=== PATIENT | female | born 1960 ===

== ENCOUNTER 2017-10-10 05:23 | Inpatient (IN) ==
[2017-10-10] MEDS ORDERED: ONDANSETRON 4 MG/2 ML VIAL IV PRN (07:21)
[2017-10-10] MEDS ORDERED: LACTULOSE 20 GM/30 ML UDCUP PO PRN ×2 (07:21→22:30)
[2017-10-10] MEDS ORDERED: DEXTROSE 50% 25 GM/50 ML VIAL IV PRN (07:26)
[2017-10-10] MEDS ORDERED: GLUCAGON 1 MG VIAL IM PRN (07:26)
[2017-10-10] MEDS ORDERED: MAGNESIUM SULF RIDER 4 GM in PREMIX 1 EACH IV PRN (07:26)
[2017-10-10 08:20] LABS: Basophils % 0.5 % (0.0-0.8); Eosinophils % 0.2 % (0.00-10.9); Hemoglobin 9.3 GM/DL (12.0-16.0); Immature Granulocytes % 0.5 %; Immature Granulocytes Absolute 0.02 #; Lymphocytes # 0.8 10*3/uL (1.4-4.0); Mean Corpuscular HGB Conc 34.4 GM/DL (32-36); Mean Corpuscular Hemoglobin 35 PG (27-34); Mean Corpuscular Volume 100.7 FL (87-102); Mean Platelet Volume 9.2 FL (9.6-12.0); Monocytes # 0.5 10*3/uL (0.11-0.8); Monocytes % 11.6 % (1.7-12.7); Neutrophils # 2.9 10*3/uL (1.4-7.4); Neutrophils % 68.2 % (38.7-73.9); Platelet Count 102 T/CUMM (130-400); Red Blood Count 2.68 MC/CUMM (3.8-5.5); Red Cell Distribution Width 14.6 % (9.3-17.3); White Blood Count 4.2 T/CUMM (4-12)
[2017-10-10] MEDS: INSULIN LISPRO 100 UNIT/ML SUBCUT SCH ×4 (08:37→21:03)
[2017-10-10 08:38] LABS: Albumin 2.5 G/DL (3.4-5.0); Bilirubin,Total 2.6 MG/DL (0.2-1.0); Calcium 8.4 MG/DL (8.5-10.1); Osmolality,Calculated 267.5 MOS/KG (273-304); Potassium 3.9 MMOL/L (3.5-5.1); Thyroid Stimulating Hormone 6.96 uIU/ml (0.358-3.74)
[2017-10-10] MEDS: PANTOPRAZOLE 40 MG TABLET PO SCH (08:45)
[2017-10-10] MEDS: FUROSEMIDE 40 MG/4 ML VIAL IV SCH ×2 (08:45→16:10)
[2017-10-10 12:22] LABS: Apearance,Urine CLEAR (Clear); Bacteria,Urine Occasional /HPF (Few); Bilirubin,Urine Negative (Negative); Blood, Urine Negative (Negative); Glucose,Urine (UA) Negative (Negative); Ketones,Urine Negative (Negative); Mucus,Urine Occasional /LPF (Occasional); Nitrite,Urine Negative (Negative); Protein,Urine Negative; RBC,Urine <1 /HPF (0-4); Squamous Epithelial Cell,Urine Occasional /HPF (0-10); Urine Color Yellow (Yellow); Urine Specific Gravity 1.003 (1.001-1.035); Urine Urobilinogen < 2.0 EU/DL (0.2-1.0); WBC,Urine <1 /HPF (0-6)
[2017-10-10] MEDS ORDERED: ASPIRIN CHEW 81 MG TABLET PO ONE (20:41)
[2017-10-10] MEDS ORDERED: LACTULOSE 160 GM/240 ML BOTTLE PO SCH (21:00)
[2017-10-10] MEDS: FAMOTIDINE 20 MG TABLET PO SCH (21:03)
[2017-10-10] MEDS: CARVEDILOL 3.125 MG TABLET PO SCH (21:03)
[2017-10-11 05:40] LABS: Basophils % 0.3 % (0.0-0.8); Eosinophils # 0.1 10*3/uL (0.0-0.87); Eosinophils % 3.1 % (0.00-10.9); Hematocrit 22.6 VOL% (35.7-47.0); Hemoglobin 7.9 GM/DL (12.0-16.0); Immature Granulocytes % 0.3 %; Immature Granulocytes Absolute 0.01 #; Lymphocytes # 1.2 10*3/uL (1.4-4.0); Lymphocytes % 35.2 % (21.3-54.2); Mean Corpuscular Hemoglobin 35 PG (27-34); Mean Corpuscular Volume 99.6 FL (87-102); Mean Platelet Volume 9.2 FL (9.6-12.0); Monocytes # 0.4 10*3/uL (0.11-0.8); Monocytes % 10.7 % (1.7-12.7); Neutrophils # 1.7 10*3/uL (1.4-7.4); Neutrophils % 50.4 % (38.7-73.9); Platelet Count 88 T/CUMM (130-400); Red Blood Count 2.27 MC/CUMM (3.8-5.5); Red Cell Distribution Width 14.8 % (9.3-17.3); White Blood Count 3.3 T/CUMM (4-12)
[2017-10-11 06:10] LABS: Albumin 1.9 G/DL (3.4-5.0); Bilirubin,Total 1.9 MG/DL (0.2-1.0); Calcium 7.6 MG/DL (8.5-10.1); Osmolality,Calculated 278.5 MOS/KG (273-304); Potassium 3.6 MMOL/L (3.5-5.1); Total Protein 5.9 G/DL (6.4-8.3)
[2017-10-11 06:41] LABS: Hypochromasia 2+; Polychromasia Slight
[2017-10-11] MEDS: INSULIN LISPRO 100 UNIT/ML SUBCUT SCH ×4 (08:23→20:12)
[2017-10-11] MEDS ORDERED: LOSARTAN 50 MG TABLET PO SCH (09:00)
[2017-10-11] MEDS: GEMFIBROZIL 600 MG TABLET PO SCH ×2 (10:06→16:21)
[2017-10-11] MEDS: metFORMIN 850 MG TABLET PO SCH ×2 (10:06→16:21)
[2017-10-11] MEDS: FUROSEMIDE 40 MG/4 ML VIAL IV SCH ×2 (10:07→18:12)
[2017-10-11] MEDS: CARVEDILOL 3.125 MG TABLET PO SCH ×2 (10:07→16:21)
[2017-10-11] MEDS: PANTOPRAZOLE 40 MG TABLET PO SCH (10:07)
[2017-10-11] MEDS: FAMOTIDINE 20 MG TABLET PO SCH ×2 (10:07→20:10)
[2017-10-11] MEDS: ASPIRIN CHEW 81 MG TABLET PO SCH (10:07)
[2017-10-11] MEDS: OMEGA 3 ACID ETHYL ESTERS 1 GM CAPSULE PO SCH (10:07)
[2017-10-11] MEDS: LACTULOSE 20 GM/30 ML UDCUP PO SCH ×2 (10:15→20:11)
[2017-10-11] MEDS ORDERED: SODIUM CHLORIDE 0.9% 1,000 ML IV PRN (10:42)
[2017-10-11 13:26] LABS: Basophils % 0.6 % (0.0-0.8); Eosinophils # 0.1 10*3/uL (0.0-0.87); Eosinophils % 2.9 % (0.00-10.9); Hematocrit 25.9 VOL% (35.7-47.0); Hemoglobin 8.5 GM/DL (12.0-16.0); Immature Granulocytes % 0.3 %; Immature Granulocytes Absolute 0.01 #; Lymphocytes # 0.8 10*3/uL (1.4-4.0); Lymphocytes % 24.3 % (21.3-54.2); Mean Corpuscular HGB Conc 32.8 GM/DL (32-36); Mean Corpuscular Hemoglobin 35 PG (27-34); Mean Corpuscular Volume 106.1 FL (87-102); Mean Platelet Volume 9.4 FL (9.6-12.0); Monocytes # 0.4 10*3/uL (0.11-0.8); Monocytes % 12.5 % (1.7-12.7); Neutrophils # 2.1 10*3/uL (1.4-7.4); Neutrophils % 59.4 % (38.7-73.9); Red Blood Count 2.44 MC/CUMM (3.8-5.5); Red Cell Distribution Width 14.8 % (9.3-17.3); White Blood Count 3.5 T/CUMM (4-12)
[2017-10-11 13:30] LABS: Platelet Count 89 T/CUMM (130-400)
[2017-10-11 13:48] LABS: Hypochromasia 1+; Lymphocytes 17 % (20-55); Platelet Estimate Decreased; Segmented Neutrophils 78 % (50-85); Total Cells Counted 100
[2017-10-11 14:16] LABS: Folate 18.8 NG/ML (5.4-24.0); Vitamin B12 845 PG/ML (211-911)
[2017-10-11 14:32] LABS: Sedimentation Rate-Westergren 114 MM/HR (0-30)
[2017-10-11 19:22] LABS: INR 1.3; Partial Thromboplastin Time 31.3 SECS (0-40)
[2017-10-11 19:29] LABS: % Iron Saturation 14.6 % (18-50)
[2017-10-11 20:29] LABS: HIV Antigen/Antibody Result Nonreactive (Nonreactive); Hepatitis A Ab IgM Result Negative (Negative); Hepatitis B Core IgM Result Negative (Negative); Hepatitis B Surface Ag Quant < 0.10 Index; Hepatitis B Surface Ag Result Negative (Negative); Hepatitis C Virus Ab Quant 0.19 Index; Hepatitis C Virus Ab Result Negative (Negative)
[2017-10-12 02:57] LABS: Hematocrit 28.2 VOL% (35.7-47.0); Hemoglobin 10.1 GM/DL (12.0-16.0)
[2017-10-12 02:58] LABS: Hematocrit 29.1 VOL% (35.7-47.0); Mean Corpuscular HGB Conc 34.4 GM/DL (32-36); Mean Corpuscular Hemoglobin 33 PG (27-34); Mean Corpuscular Volume 97.3 FL (87-102); Mean Platelet Volume 9.4 FL (9.6-12.0); Platelet Count 80 T/CUMM (130-400); Red Blood Count 2.99 MC/CUMM (3.8-5.5); Red Cell Distribution Width 17.2 % (9.3-17.3); White Blood Count 3.5 T/CUMM (4-12)
[2017-10-12 02:59] LABS: Basophils % 0.3 % (0.0-0.8); Eosinophils # 0.1 10*3/uL (0.0-0.87); Eosinophils % 2.6 % (0.00-10.9); Immature Granulocytes % 0.3 %; Immature Granulocytes Absolute 0.01 #; Lymphocytes % 29.4 % (21.3-54.2); Monocytes # 0.4 10*3/uL (0.11-0.8); Monocytes % 10.9 % (1.7-12.7); Neutrophils % 56.5 % (38.7-73.9)
[2017-10-12 03:27] LABS: Calcium 7.9 MG/DL (8.5-10.1); Osmolality,Calculated 285.4 MOS/KG (273-304); Potassium 3.6 MMOL/L (3.5-5.1)
[2017-10-12 03:46] LABS: Band Neutrophils 1 % (0-10); Lymphocytes 30 % (20-55); Macrocytosis 3+; Platelet Estimate Decreased; Segmented Neutrophils 59 % (50-85); Total Cells Counted 100
[2017-10-12 03:47] LABS: Atypical Lymphocytes Few
[2017-10-12] MEDS ORDERED: diphenhydrAMINE 50 MG/1 ML VIAL IV ONE (03:52)
[2017-10-12] MEDS: GEMFIBROZIL 600 MG TABLET PO SCH ×2 (09:47→17:00)
[2017-10-12] MEDS: FAMOTIDINE 20 MG TABLET PO SCH ×2 (09:47→20:56)
[2017-10-12] MEDS: ASPIRIN CHEW 81 MG TABLET PO SCH (09:47)
[2017-10-12] MEDS: metFORMIN 850 MG TABLET PO SCH ×2 (09:47→16:59)
[2017-10-12] MEDS: INSULIN LISPRO 100 UNIT/ML SUBCUT SCH ×4 (09:47→20:57)
[2017-10-12] MEDS: PANTOPRAZOLE 40 MG TABLET PO SCH (09:47)
[2017-10-12] MEDS: OMEGA 3 ACID ETHYL ESTERS 1 GM CAPSULE PO SCH (09:47)
[2017-10-12] MEDS: FUROSEMIDE 40 MG/4 ML VIAL IV SCH ×2 (09:47→16:59)
[2017-10-12] MEDS: CARVEDILOL 3.125 MG TABLET PO SCH ×2 (09:48→16:59)
[2017-10-12] MEDS ORDERED: MAGNESIUM SULF RIDER 4 GM in PREMIX 1 EACH IV ONE (10:30)
[2017-10-12] MEDS: LACTULOSE 20 GM/30 ML UDCUP PO SCH ×2 (10:52→20:56)
[2017-10-13 04:43] LABS: Basophils % 0.5 % (0.0-0.8); Eosinophils # 0.1 10*3/uL (0.0-0.87); Eosinophils % 2.7 % (0.00-10.9); Hematocrit 31.5 VOL% (35.7-47.0); Hemoglobin 10.9 GM/DL (12.0-16.0); Immature Granulocytes % 0.3 %; Immature Granulocytes Absolute 0.01 #; Lymphocytes # 1.2 10*3/uL (1.4-4.0); Lymphocytes % 33.4 % (21.3-54.2); Mean Corpuscular HGB Conc 34.6 GM/DL (32-36); Mean Corpuscular Hemoglobin 33 PG (27-34); Mean Platelet Volume 9.4 FL (9.6-12.0); Monocytes # 0.5 10*3/uL (0.11-0.8); Monocytes % 13.2 % (1.7-12.7); Neutrophils # 1.9 10*3/uL (1.4-7.4); Neutrophils % 49.9 % (38.7-73.9); Platelet Count 74 T/CUMM (130-400); Red Blood Count 3.28 MC/CUMM (3.8-5.5); White Blood Count 3.7 T/CUMM (4-12)
[2017-10-13 05:00] LABS: Calcium 8.2 MG/DL (8.5-10.1); Osmolality,Calculated 286.1 MOS/KG (273-304)
[2017-10-13 05:11] LABS: Eosinophils 5 % (0-10); Lymphocytes 26 % (20-55); Segmented Neutrophils 57 % (50-85); Total Cells Counted 100
[2017-10-13 05:12] LABS: Atypical Lymphocytes Few; Giant Platelets Few; Hypochromasia 1+; Ovalocytes Slight; Platelet Estimate Decreased
[2017-10-13] MEDS: MAGNESIUM SULF RIDER 2 GM in PREMIX 1 EACH IV PRN ×2 (06:34→10:30)
[2017-10-13] MEDS: INSULIN LISPRO 100 UNIT/ML SUBCUT SCH ×3 (07:33→16:22)
[2017-10-13] MEDS ORDERED: MAGNESIUM SULF RIDER 4 GM in PREMIX 1 EACH IV ONE (08:07)
[2017-10-13] MEDS ORDERED: DEXT 5% NACL 0.45% KCL 20 MEQ 20 MEQ/1,000 ML BAG IV SCH (08:30)
[2017-10-13 08:39] LABS: Hemoglobin A1 (Alkaline) 97.4 % (96.5-98.5); Hemoglobin A2 (Alkaline) 2.6 % (1.5-3.5)
[2017-10-13] MEDS ORDERED: POTASSIUM CHLORIDE RIDER 20 MEQ in PREMIX 1 EACH IV STA (08:39)
[2017-10-13] MEDS ORDERED: MAGNESIUM SULF RIDER 2 GM in PREMIX 1 EACH IV PRN (08:54)
[2017-10-13] MEDS ORDERED: POTASSIUM CHLORIDE RIDER 10 MEQ in PREMIX 1 EACH IV PRN (08:54)
[2017-10-13] MEDS: POTASSIUM CHLORIDE RIDER 10 MEQ in PREMIX 1 EACH IV PRN ×2 (09:00→10:15)
[2017-10-13] MEDS ORDERED: HEPARIN 5,000 UNIT/1 ML VIAL ONE (09:04)
[2017-10-13] MEDS: metFORMIN 850 MG TABLET PO SCH ×2 (10:36→17:03)
[2017-10-13] MEDS: GEMFIBROZIL 600 MG TABLET PO SCH ×2 (10:37→17:03)
[2017-10-13] MEDS: OMEGA 3 ACID ETHYL ESTERS 1 GM CAPSULE PO SCH (10:37)
[2017-10-13] MEDS: LACTULOSE 20 GM/30 ML UDCUP PO SCH ×2 (10:37→21:03)
[2017-10-13] MEDS ORDERED: DIAZEPAM 5 MG TABLET PO ONE (11:00)
[2017-10-13] MEDS ORDERED: diphenhydrAMINE CAP 25 MG CAPSULE PO ONE (11:00)
[2017-10-13] MEDS: PANTOPRAZOLE 40 MG TABLET PO SCH (12:32)
[2017-10-13] MEDS: ASPIRIN CHEW 81 MG TABLET PO SCH (12:32)
[2017-10-13] MEDS: FAMOTIDINE 20 MG TABLET PO SCH ×2 (12:33→21:03)
[2017-10-13] MEDS: SODIUM CHLORIDE 0.9% 1,000 ML IV SCH ×2 (12:33→16:22)
[2017-10-13] MEDS: CARVEDILOL 3.125 MG TABLET PO SCH ×2 (12:33→17:04)
[2017-10-13] MEDS ORDERED: MIDAZOLAM 2 MG/2 ML VIAL ONE (13:06)
[2017-10-13] MEDS ORDERED: fentaNYL 100 MCG/2 ML VIAL ONE (13:06)
[2017-10-13] MEDS: chlordiazePOXIDE 10 MG CAPSULE PO SCH (14:18)
[2017-10-13 16:09] LABS: Basophils % 0.6 % (0.0-0.8); Eosinophils # 0.1 10*3/uL (0.0-0.87); Hematocrit 35.9 VOL% (35.7-47.0); Hemoglobin 12.5 GM/DL (12.0-16.0); Immature Granulocytes % 0.4 %; Immature Granulocytes Absolute 0.02 #; Lymphocytes # 1.4 10*3/uL (1.4-4.0); Lymphocytes % 27.8 % (21.3-54.2); Mean Corpuscular HGB Conc 34.8 GM/DL (32-36); Mean Corpuscular Hemoglobin 34 PG (27-34); Mean Platelet Volume 9.2 FL (9.6-12.0); Monocytes # 0.6 10*3/uL (0.11-0.8); Monocytes % 11.2 % (1.7-12.7); Platelet Count 84 T/CUMM (130-400); Red Cell Distribution Width 17.4 % (9.3-17.3); White Blood Count 5.1 T/CUMM (4-12)
[2017-10-13 16:29] LABS: Bilirubin,Total 2.2 MG/DL (0.2-1.0); Calcium 8.2 MG/DL (8.5-10.1); Osmolality,Calculated 283.4 MOS/KG (273-304); Potassium 3.5 MMOL/L (3.5-5.1); Total Protein 6.9 G/DL (6.4-8.3)
[2017-10-13 16:41] LABS: Hypochromasia 1+; Macrocytosis 2+
[2017-10-13 16:42] LABS: Platelet Estimate Decreased
[2017-10-13] MEDS: POTASSIUM CHLORIDE 20 MEQ TABLET PO PRN ×2 (17:03→19:03)
[2017-10-13] MEDS: ROSUVASTATIN 20 MG TABLET PO SCH (21:03)
[2017-10-14] MEDS: INSULIN LISPRO 100 UNIT/ML SUBCUT SCH ×5 (03:34→22:39)
[2017-10-14] MEDS: chlordiazePOXIDE 10 MG CAPSULE PO SCH ×2 (03:34→09:40)
[2017-10-14] MEDS ORDERED: SODIUM CHLORIDE 0.9% 250 ML IV ONE (04:03)
[2017-10-14] MEDS: CHLORHEXIDINE 0.12% ORAL RINSE 60 ML BOTTLE SWISH/SPIT SCH ×3 (04:47→22:19)
[2017-10-14 04:51] LABS: Basophils % 0.7 % (0.0-0.8); Eosinophils # 0.2 10*3/uL (0.0-0.87); Hemoglobin 11.6 GM/DL (12.0-16.0); Immature Granulocytes % 0.4 %; Immature Granulocytes Absolute 0.02 #; Lymphocytes # 1.5 10*3/uL (1.4-4.0); Lymphocytes % 32.2 % (21.3-54.2); Mean Corpuscular HGB Conc 33.1 GM/DL (32-36); Mean Corpuscular Hemoglobin 33 PG (27-34); Mean Corpuscular Volume 98.6 FL (87-102); Mean Platelet Volume 9.5 FL (9.6-12.0); Monocytes # 0.6 10*3/uL (0.11-0.8); Monocytes % 13.1 % (1.7-12.7); Neutrophils # 2.2 10*3/uL (1.4-7.4); Neutrophils % 48.6 % (38.7-73.9); Platelet Count 100 T/CUMM (130-400); Red Blood Count 3.55 MC/CUMM (3.8-5.5); Red Cell Distribution Width 17.6 % (9.3-17.3); White Blood Count 4.6 T/CUMM (4-12)
[2017-10-14 05:24] LABS: Calcium 7.9 MG/DL (8.5-10.1); Osmolality,Calculated 289.1 MOS/KG (273-304)
[2017-10-14] MEDS ORDERED: SODIUM CHLORIDE 0.9% 500 ML IV ONE (07:54)
[2017-10-14] MEDS: LACTULOSE 20 GM/30 ML UDCUP PO SCH ×2 (09:38→22:39)
[2017-10-14] MEDS: GEMFIBROZIL 600 MG TABLET PO SCH ×2 (09:39→18:33)
[2017-10-14] MEDS: OMEGA 3 ACID ETHYL ESTERS 1 GM CAPSULE PO SCH (09:39)
[2017-10-14] MEDS: metFORMIN 850 MG TABLET PO SCH ×2 (09:39→18:33)
[2017-10-14] MEDS: PANTOPRAZOLE 40 MG TABLET PO SCH (09:39)
[2017-10-14] MEDS: FAMOTIDINE 20 MG TABLET PO SCH ×3 (09:39→22:11)
[2017-10-14] MEDS: ASPIRIN CHEW 81 MG TABLET PO SCH (09:40)
[2017-10-14] MEDS: CARVEDILOL 3.125 MG TABLET PO SCH ×2 (09:40→18:30)
[2017-10-14] MEDS: SODIUM CHLORIDE 0.9% 1,000 ML IV SCH ×2 (10:24→15:19)
[2017-10-14] MEDS: CHLORHEXIDINE 4% SOLN 118 ML BOTTLE TOP SCH ×4 (12:23→22:38)
[2017-10-14] MEDS ORDERED: FUROSEMIDE 40 MG/4 ML VIAL IV ONE (13:04)
[2017-10-14] MEDS ORDERED: SODIUM CHLORIDE 0.9% 1,000 ML IV PRN (13:09)
[2017-10-14] MEDS ORDERED: ENOXAPARIN 40 MG/0.4 ML SYRINGE SUBCUT ONE (19:46)
[2017-10-14] MEDS ORDERED: ASPIRIN CHEW 81 MG TABLET PO ONE (19:47)
[2017-10-14] MEDS ORDERED: ENOXAPARIN 80 MG/0.8 ML SYRINGE SUBCUT ONE (19:49)
[2017-10-14] MEDS ORDERED: THIAMINE INJ 100 MG, FOLIC ACID INJ 1 MG, MULTIVITAMIN INJ 10 ML in SODIUM CHLORIDE 0.9... IV ONE (20:47)
[2017-10-14] MEDS ORDERED: chlordiazePOXIDE 10 MG CAPSULE PO ONE ×2 (20:48→23:00)
[2017-10-14] MEDS: ROSUVASTATIN 20 MG TABLET PO SCH (22:11)
[2017-10-15 00:50] LABS: Hematocrit 41.5 VOL% (35.7-47.0); Hemoglobin 14.8 GM/DL (12.0-16.0)
[2017-10-15 04:38] LABS: Basophils % 0.7 % (0.0-0.8); Eosinophils # 0.1 10*3/uL (0.0-0.87); Eosinophils % 3.2 % (0.00-10.9); Hematocrit 38.5 VOL% (35.7-47.0); Immature Granulocytes % 0.2 %; Immature Granulocytes Absolute 0.01 #; Lymphocytes # 1.2 10*3/uL (1.4-4.0); Lymphocytes % 30.3 % (21.3-54.2); Mean Corpuscular HGB Conc 33.8 GM/DL (32-36); Mean Corpuscular Hemoglobin 32 PG (27-34); Mean Corpuscular Volume 95.8 FL (87-102); Mean Platelet Volume 9.5 FL (9.6-12.0); Monocytes # 0.5 10*3/uL (0.11-0.8); Monocytes % 12.7 % (1.7-12.7); Neutrophils # 2.1 10*3/uL (1.4-7.4); Neutrophils % 52.9 % (38.7-73.9); Platelet Count 82 T/CUMM (130-400); Red Blood Count 4.02 MC/CUMM (3.8-5.5); Red Cell Distribution Width 17.5 % (9.3-17.3)
[2017-10-15] MEDS ORDERED: CEFUROXIME INJ 1,500 MG in SYRINGE 1 EACH IV ONE (05:00)
[2017-10-15 05:12] LABS: Osmolality,Calculated 288.1 MOS/KG (273-304); Potassium 3.6 MMOL/L (3.5-5.1)
[2017-10-15 05:20] LABS: Hypochromasia 1+; Macrocytosis Slight; Platelet Estimate Decreased
[2017-10-15] MEDS ORDERED: VANCOMYCIN 1,000 MG VIAL ONE ×2 (05:20→07:56)
[2017-10-15] MEDS ORDERED: PAPAVERINE 60 MG/2 ML VIAL ONE (05:20)
[2017-10-15] MEDS ORDERED: TISSUE ADHESIVE 1 EACH APPLICATOR TOP ONE (05:20)
[2017-10-15] MEDS ORDERED: DIAZEPAM 5 MG TABLET PO ONE ×2 (05:30→06:00)
[2017-10-15] MEDS: CHLORHEXIDINE 0.12% ORAL RINSE 60 ML BOTTLE SWISH/SPIT SCH ×3 (05:40→21:56)
[2017-10-15] MEDS: PANTOPRAZOLE 40 MG TABLET PO SCH ×2 (05:41→11:42)
[2017-10-15] MEDS: OMEGA 3 ACID ETHYL ESTERS 1 GM CAPSULE PO SCH ×2 (05:41→11:41)
[2017-10-15] MEDS: GEMFIBROZIL 600 MG TABLET PO SCH ×2 (05:41→11:41)
[2017-10-15] MEDS: CARVEDILOL 3.125 MG TABLET PO SCH ×2 (05:41→11:40)
[2017-10-15] MEDS ORDERED: FAMOTIDINE 20 MG/2 ML VIAL IV ONE (06:00)
[2017-10-15] MEDS ORDERED: SUFentanil 250 MCG/5 ML AMP ONE (06:02)
[2017-10-15] MEDS ORDERED: MIDAZOLAM 10 MG/2 ML VIAL ONE ×2 (06:02→09:06)
[2017-10-15] MEDS: CHLORHEXIDINE 4% SOLN 118 ML BOTTLE TOP SCH (06:50)
[2017-10-15 07:46] LABS: ABG Base Excess -1.6 MMOL/L (-2.5-2.5); ABG HCO3 23.1 MMOL/L (20-26); ABG Oxygen Saturation 99.8 % (95-100); ABG PCO2 35.7 MM HG (35-48); ABG PH 7.407 (7.35-7.45); ABG TCO2 19.8 MMOL/L (23-27); Glucose Heart Surgery 123 MG/DL (74-106); Hematocrit Heart Surgery 37.6 PERCENT (37-47); Hemoglobin Heart Surgery 12.2 G/DL (12.0-16.0); Ionized Calcium Arterial 1.07 MMOL/L (1.21-1.46); PCO2 Patient Temp Arterial 35.7 MMHG; PH Patient Temp Arterial 7.407; Patient Temperature 37 CELCIUS; Potassium Heart/CVR 3.2 MMOL/L (3.5-5.1); Sodium Heart/CVR 142 MMOL/L (135-145)
[2017-10-15 08:00] LABS: Apearance,Urine Slightly Hazy (Clear); Bacteria,Urine Occasional /HPF (Few); Bilirubin,Urine Negative (Negative); Blood, Urine Negative (Negative); Glucose,Urine (UA) Negative (Negative); Ketones,Urine Negative (Negative); Mucus,Urine Occasional /LPF (Occasional); Nitrite,Urine Negative (Negative); Protein,Urine Negative; RBC,Urine 2 /HPF (0-4); Squamous Epithelial Cell,Urine Occasional /HPF (0-10); Urine Color Yellow (Yellow); Urine Specific Gravity 1.005 (1.001-1.035); Urine Urobilinogen < 2.0 EU/DL (0.2-1.0); WBC,Urine 1 /HPF (0-6)
[2017-10-15] MEDS ORDERED: ASPIRIN CHEW 81 MG TABLET PO SCH (09:00)
[2017-10-15] MEDS ORDERED: PHENYLEPHRINE 10 MG/1 ML VIAL IV ONE (09:06)
[2017-10-15] MEDS ORDERED: VECURONIUM 10 MG VIAL IV ONE (09:06)
[2017-10-15] MEDS ORDERED: CALCIUM CHLORIDE 1,000 MG/10 ML VIAL IV ONE ×2 (09:06→12:24)
[2017-10-15] MEDS ORDERED: HEPARIN/NACL 0.9% 2 UNITS/ML 500 ML IV ONE (09:06)
[2017-10-15] MEDS ORDERED: ETOMIDATE 40 MG/20 ML VIAL IV ONE (09:06)
[2017-10-15] MEDS ORDERED: EPINEPHrine 1 MG/ML VIAL ONE ×2 (09:06→11:56)
[2017-10-15] MEDS ORDERED: TRANEXAMIC ACID 1,000 MG/10 ML VIAL ONE (09:06)
[2017-10-15] MEDS ORDERED: LACTATED RINGERS 1,000 ML IV ONE (09:07)
[2017-10-15] MEDS ORDERED: SODIUM CHLORIDE 0.9% 200 ML IV ONE (09:07)
[2017-10-15 09:16] LABS: Hematocrit Heart Surgery 22.1 PERCENT (37-47); Hemoglobin Heart Surgery 7.1 G/DL (12.0-16.0); PCO2 Patient Temp Venous 26.6 MM HG; PH Patient Temp Venous 7.503; PO2 Patient Temp Venous 46.7 MM HG; Potassium Heart/CVR 3.9 MMOL/L (3.5-5.1); VBG Base Excess -1.7 MEQ/L (0-4); VBG HCO3 22.9 MEQ/L (24-28); VBG Oxygen Saturation 88.8 %; VBG PCO2 29.3 MMHG (41-51); VBG PH 7.472; VBG PO2 53.3 MMHG (17-40)
[2017-10-15 09:43] LABS: PCO2 Patient Temp Venous 28.8 MM HG; PH Patient Temp Venous 7.555; PO2 Patient Temp Venous 54.5 MM HG; VBG Base Excess 2.6 MEQ/L (0-4); VBG HCO3 25.1 MEQ/L (24-28); VBG Oxygen Saturation 88.8 %; VBG PCO2 30.1 MMHG (41-51); VBG PH 7.539; VBG PO2 58.4 MMHG (17-40)
[2017-10-15] MEDS ORDERED: ALBUMIN 5% 12.5 GM/250 ML VIAL IV ONE (10:12)
[2017-10-15] MEDS ORDERED: SODIUM BICARBONATE 50 MEQ/50 ML SYRINGE IV ONE ×3 (10:13→11:22)
[2017-10-15] MEDS ORDERED: CALCIUM CHLORIDE 1,000 MG/10 ML SYRINGE IV ONE (10:14)
[2017-10-15] MEDS ORDERED: EPINEPHrine 1 MG/10 ML SYRINGE ONE (10:14)
[2017-10-15] MEDS ORDERED: THROMBIN TOPICAL (RECOMBINANT) 5,000 UNIT VIAL TOP ONE (10:25)
[2017-10-15 10:36] LABS: ABG Base Excess -1.3 MMOL/L (-2.5-2.5); ABG HCO3 23.3 MMOL/L (20-26); ABG Oxygen Saturation 99.4 % (95-100); ABG PCO2 35.6 MM HG (35-48); ABG PH 7.416 (7.35-7.45); ABG TCO2 21.5 MMOL/L (23-27); Glucose Heart Surgery 220 MG/DL (74-106); Hematocrit Heart Surgery 23.4 PERCENT (37-47); Hemoglobin Heart Surgery 7.5 G/DL (12.0-16.0); Ionized Calcium Arterial 1.26 MMOL/L (1.21-1.46); PCO2 Patient Temp Arterial 35.6 MMHG; PH Patient Temp Arterial 7.416; Patient Temperature 37 CELCIUS; Sodium Heart/CVR 138 MMOL/L (135-145)
[2017-10-15] MEDS ORDERED: ALBUMIN 25% 25 GM/100 ML VIAL IV ONE (10:38)
[2017-10-15] MEDS ORDERED: DEXTROSE 5% KCL 20 MEQ 20 MEQ/1,000 ML BAG IV ONE (10:38)
[2017-10-15] MEDS ORDERED: MAGNESIUM SULFATE 1 GM/2 ML VIAL ONE (10:38)
[2017-10-15] MEDS ORDERED: PROTAMINE SULFATE 250 MG/25 ML VIAL IV ONE (10:38)
[2017-10-15] MEDS ORDERED: PROTAMINE SULFATE 50 MG/5 ML VIAL IV ONE (10:39)
[2017-10-15] MEDS ORDERED: HEPARIN 10,000 UNIT/10 ML VIAL ONE (10:39)
[2017-10-15] MEDS ORDERED: FUROSEMIDE 20 MG/2 ML VIAL ONE (10:39)
[2017-10-15] MEDS ORDERED: MANNITOL 12.5 GM/50 ML VIAL IV ONE (10:39)
[2017-10-15] MEDS ORDERED: methylPREDNISolone SOD SUC 1,000 MG/8 ML VIAL ONE (10:39)
[2017-10-15 11:16] LABS: ABG Base Excess -6.6 MMOL/L (-2.5-2.5); ABG HCO3 19.8 MMOL/L (20-26); ABG Oxygen Saturation 98.6 % (95-100); ABG PCO2 42.9 MM HG (35-48); ABG PH 7.281 (7.35-7.45); ABG PO2 225.4 MM HG (80-95); ABG TCO2 21.1 MMOL/L (23-27); Glucose Heart Surgery 214 MG/DL (74-106); Hemoglobin Heart Surgery 10.3 G/DL (12.0-16.0); Ionized Calcium Arterial 0.94 MMOL/L (1.21-1.46); PCO2 Patient Temp Arterial 42.9 MMHG; PH Patient Temp Arterial 7.281; PO2 Patient Temp Arterial 225.4 MM HG; Patient Temperature 37 CELCIUS; Potassium Heart/CVR 4.3 MMOL/L (3.5-5.1); Sodium Heart/CVR 136 MMOL/L (135-145)
[2017-10-15] MEDS: metFORMIN 850 MG TABLET PO SCH (11:40)
[2017-10-15] MEDS: INSULIN LISPRO 100 UNIT/ML SUBCUT SCH (11:40)
[2017-10-15] MEDS: SODIUM CHLORIDE 0.9% 1,000 ML IV SCH (11:41)
[2017-10-15] MEDS: FAMOTIDINE 20 MG TABLET PO SCH ×2 (11:41→21:56)
[2017-10-15] MEDS: LACTULOSE 20 GM/30 ML UDCUP PO SCH (11:41)
[2017-10-15 11:50] LABS: ABG Base Excess 0.2 MMOL/L (-2.5-2.5); ABG HCO3 24.6 MMOL/L (20-26); ABG Oxygen Saturation 99.3 % (95-100); ABG PCO2 40.5 MM HG (35-48); ABG PH 7.398 (7.35-7.45); ABG TCO2 23.2 MMOL/L (23-27); Glucose Heart Surgery 210 MG/DL (74-106); Hematocrit Heart Surgery 25.8 PERCENT (37-47); Hemoglobin Heart Surgery 8.3 G/DL (12.0-16.0); Ionized Calcium Arterial 1.06 MMOL/L (1.21-1.46); PCO2 Patient Temp Arterial 38.6 MMHG; PH Patient Temp Arterial 7.412; Patient Temperature 36 CELCIUS; Potassium Heart/CVR 3.9 MMOL/L (3.5-5.1); Sodium Heart/CVR 144 MMOL/L (135-145)
[2017-10-15] MEDS ORDERED: CALCIUM GLUCONATE 1,000 MG in SODIUM CHLORIDE 0.9% 100 ML IV ONE (12:15)
[2017-10-15] MEDS ORDERED: SODIUM CHLORIDE 0.9% 2,000 ML IV ONE (12:24)
[2017-10-15] MEDS ORDERED: MIDAZOLAM 2 MG/2 ML VIAL IV PRN (12:27)
[2017-10-15] MEDS ORDERED: MAGNESIUM SULF RIDER 4 GM in PREMIX 1 EACH IV PRN (12:27)
[2017-10-15] MEDS ORDERED: DEXTROSE 50% 25 GM/50 ML VIAL IV PRN ×2 (12:27)
[2017-10-15] MEDS ORDERED: ACETAMINOPHEN 650 MG SUPP RECTAL PRN (12:27)
[2017-10-15] MEDS ORDERED: MORPHINE 10 MG/1 ML VIAL IV PRN (12:27)
[2017-10-15] MEDS ORDERED: MORPHINE 4 MG/1 ML VIAL IV PRN (12:27)
[2017-10-15] MEDS ORDERED: CALCIUM GLUCONATE 1,000 MG/10 ML VIAL IV ONE (12:27)
[2017-10-15] MEDS ORDERED: INSULIN REGULAR 100 UNIT/ML IV PRN (12:27)
[2017-10-15] MEDS ORDERED: SODIUM CHLORIDE 0.9% 250 ML IV PRN (12:27)
[2017-10-15] MEDS ORDERED: CALCIUM CHLORIDE 1,000 MG/10 ML SYRINGE IV PRN (12:27)
[2017-10-15] MEDS ORDERED: CHLORHEXIDINE 4% SOLN 118 ML BOTTLE TOP PRN (12:27)
[2017-10-15] MEDS ORDERED: INSULIN REGULAR DRIP 100 ML IV SCH (12:30)
[2017-10-15 12:42] LABS: ABG Base Excess -0.2 MMOL/L (-2.5-2.5); ABG HCO3 24.3 MMOL/L (20-26); ABG Oxygen Saturation 96.8 % (95-100); ABG PCO2 39.4 MM HG (35-48); ABG PH 7.401 (7.35-7.45); ABG PO2 80.2 MM HG (80-95); Glucose Heart Surgery 216 MG/DL (74-106); Hemoglobin Heart Surgery 7.4 G/DL (12.0-16.0); Potassium Heart/CVR 3.9 MMOL/L (3.5-5.1)
[2017-10-15 12:44] LABS: Basophils % 0.2 % (0.0-0.8); Eosinophils # 0.1 10*3/uL (0.0-0.87); Eosinophils % 1.5 % (0.00-10.9); Hematocrit 21.7 VOL% (35.7-47.0); Hemoglobin 7.3 GM/DL (12.0-16.0); Immature Granulocytes % 1.3 %; Immature Granulocytes Absolute 0.06 #; Lymphocytes % 21.2 % (21.3-54.2); Mean Corpuscular HGB Conc 33.6 GM/DL (32-36); Mean Corpuscular Hemoglobin 31 PG (27-34); Mean Corpuscular Volume 91.6 FL (87-102); Mean Platelet Volume 9.9 FL (9.6-12.0); Monocytes # 0.4 10*3/uL (0.11-0.8); Monocytes % 9.1 % (1.7-12.7); Neutrophils % 66.7 % (38.7-73.9); Platelet Count 67 T/CUMM (130-400); Red Blood Count 2.37 MC/CUMM (3.8-5.5); Red Cell Distribution Width 16.8 % (9.3-17.3); White Blood Count 4.5 T/CUMM (4-12)
[2017-10-15 12:54] LABS: INR 1.4; PT Patient Result 15.1 SECS; Partial Thromboplastin Time 33.7 SECS (0-40)
[2017-10-15 13:02] LABS: Lactic Acid 2.9 MMOL/L (0.4-2.0)
[2017-10-15 13:15] LABS: Blood Urea Nitrogen 16 MG/DL (7-18); Calcium 8.7 MG/DL (8.5-10.1); Glucose 211 MG/DL (74-106); Osmolality,Calculated 298.4 MOS/KG (273-304); Sodium 147 MMOL/L (136-145)
[2017-10-15 13:30] LABS: Hemoglobin Heart Surgery 7.6 G/DL (12.0-16.0); PCO2 Patient Temp Venous 39.1 MM HG; PH Patient Temp Venous 7.42; PO2 Patient Temp Venous 44.4 MM HG; Potassium Heart/CVR 3.8 MMOL/L (3.5-5.1); VBG Base Excess 0.3 MEQ/L (0-4); VBG HCO3 24.8 MEQ/L (24-28); VBG Oxygen Saturation 77.6 %; VBG PCO2 39.1 MMHG (41-51); VBG PH 7.42; VBG PO2 44.4 MMHG (17-40)
[2017-10-15] MEDS ORDERED: SODIUM CHLORIDE 0.9% 1,000 ML IV PRN (13:31)
[2017-10-15] MEDS ORDERED: MAGNESIUM SULF RIDER 100 ML IV ONE (13:48)
[2017-10-15] MEDS: SODIUM CHLORIDE 0.45% 1,000 ML IV SCH ×2 (14:28)
[2017-10-15] MEDS: ALBUMIN 5% 12.5 GM in PREMIX 1 EACH IV PRN ×2 (14:30→14:32)
[2017-10-15] MEDS: POTASSIUM CHLORIDE RIDER 20 MEQ in PREMIX 1 EACH IV PRN (14:53)
[2017-10-15] MEDS ORDERED: ASPIRIN CHEW 81 MG TABLET PO ONE (16:56)
[2017-10-15] MEDS: POTASSIUM CHLORIDE RIDER 10 MEQ in PREMIX 1 EACH IV PRN (17:29)
[2017-10-15 19:50] LABS: ABG Base Excess 0.9 MMOL/L (-2.5-2.5); ABG HCO3 25.2 MMOL/L (20-26); ABG Oxygen Saturation 98.6 % (95-100); ABG PCO2 40.8 MM HG (35-48); ABG PH 7.406 (7.35-7.45); ABG TCO2 24.1 MMOL/L (23-27); Glucose Heart Surgery 187 MG/DL (74-106); Hematocrit Heart Surgery 22.6 PERCENT (37-47); Hemoglobin Heart Surgery 7.2 G/DL (12.0-16.0); Potassium Heart/CVR 3.7 MMOL/L (3.5-5.1)
[2017-10-15] MEDS: CEFUROXIME INJ 1,500 MG in SYRINGE 1 EACH IV SCH (21:57)
[2017-10-16] MEDS: SODIUM CHLORIDE 0.45% 1,000 ML IV SCH ×2 (02:47→08:38)
[2017-10-16] MEDS ORDERED: FUROSEMIDE 40 MG/4 ML VIAL IV ONE (03:02)
[2017-10-16 03:57] LABS: Eosinophils % 0.2 % (0.00-10.9); Hematocrit 26.7 VOL% (35.7-47.0); Immature Granulocytes % 0.5 %; Immature Granulocytes Absolute 0.03 #; Lymphocytes # 0.6 10*3/uL (1.4-4.0); Lymphocytes % 10.6 % (21.3-54.2); Mean Corpuscular HGB Conc 34.8 GM/DL (32-36); Mean Corpuscular Hemoglobin 31 PG (27-34); Mean Corpuscular Volume 88.4 FL (87-102); Monocytes # 0.4 10*3/uL (0.11-0.8); Monocytes % 7.4 % (1.7-12.7); Neutrophils # 4.8 10*3/uL (1.4-7.4); Neutrophils % 81.3 % (38.7-73.9); Red Blood Count 3.02 MC/CUMM (3.8-5.5); Red Cell Distribution Width 16.7 % (9.3-17.3)
[2017-10-16 04:06] LABS: Calcium 8.4 MG/DL (8.5-10.1); Osmolality,Calculated 292.7 MOS/KG (273-304); Potassium 3.7 MMOL/L (3.5-5.1)
[2017-10-16 04:17] LABS: Hemoglobin 9.3 GM/DL (12.0-16.0); Platelet Count 38 T/CUMM (130-400)
[2017-10-16] MEDS ORDERED: SODIUM CHLORIDE 0.9% 1,000 ML IV PRN (04:24)
[2017-10-16 04:43] LABS: Hypochromasia 1+; Ovalocytes Slight; Platelet Estimate Decreased
[2017-10-16] MEDS: POTASSIUM CHLORIDE RIDER 20 MEQ in PREMIX 1 EACH IV PRN ×2 (05:17→08:46)
[2017-10-16] MEDS: MAGNESIUM SULF RIDER 2 GM in PREMIX 1 EACH IV PRN (05:17)
[2017-10-16 06:53] LABS: VBG Base Excess 1.6 MEQ/L (0-4); VBG HCO3 25.5 MEQ/L (24-28); VBG Oxygen Saturation 72.6 %; VBG PCO2 39.6 MMHG (41-51); VBG PH 7.426; VBG PO2 38.5 MMHG (17-40)
[2017-10-16 08:35] LABS: ABG Base Excess 1.4 MMOL/L (-2.5-2.5); ABG HCO3 24.6 MMOL/L (20-26); ABG Oxygen Saturation 96.9 % (95-100); ABG PCO2 33.4 MM HG (35-48); ABG PH 7.485 (7.35-7.45); ABG PO2 99.9 MM HG (80-95); ABG TCO2 25.6 MMOL/L (23-27); Glucose Heart Surgery 114 MG/DL (74-106); Hemoglobin Heart Surgery 9.8 G/DL (12.0-16.0); Potassium Heart/CVR 3.7 MMOL/L (3.5-5.1)
[2017-10-16] MEDS: FUROSEMIDE 40 MG TABLET PO SCH (08:48)
[2017-10-16] MEDS: FAMOTIDINE 20 MG TABLET PO SCH ×2 (08:48→21:54)
[2017-10-16] MEDS: CEFUROXIME INJ 1,500 MG in SYRINGE 1 EACH IV SCH ×2 (08:49→21:55)
[2017-10-16] MEDS: CHLORHEXIDINE 0.12% ORAL RINSE 60 ML BOTTLE SWISH/SPIT SCH ×2 (08:49→21:54)
[2017-10-16] MEDS: ASPIRIN EC 325 MG TABLET PO SCH (09:16)
[2017-10-16] MEDS: POTASSIUM CHLORIDE RIDER 10 MEQ in PREMIX 1 EACH IV PRN (10:01)
[2017-10-16 11:52] LABS: ABG Base Excess 0.8 MMOL/L (-2.5-2.5); ABG HCO3 25.1 MMOL/L (20-26); ABG Oxygen Saturation 98.3 % (95-100); ABG PCO2 34.6 MM HG (35-48); ABG PH 7.456 (7.35-7.45); ABG PO2 99.4 MM HG (80-95); ABG TCO2 22.1 MMOL/L (23-27); Glucose Heart Surgery 155 MG/DL (74-106); Hematocrit Heart Surgery 30.5 PERCENT (37-47); Hemoglobin Heart Surgery 9.9 G/DL (12.0-16.0); Potassium Heart/CVR 4.4 MMOL/L (3.5-5.1)
[2017-10-16] MEDS: INSULIN REGULAR 100 UNIT/ML SUBCUT SCH ×3 (13:43→20:31)
[2017-10-16] MEDS: ATORVASTATIN 40 MG TABLET PO SCH (21:54)
[2017-10-17] MEDS: INSULIN REGULAR 100 UNIT/ML SUBCUT SCH ×6 (00:12→22:31)
[2017-10-17 05:32] LABS: Basophils % 0.1 % (0.0-0.8); Eosinophils % 0.1 % (0.00-10.9); Hematocrit 27.8 VOL% (35.7-47.0); Hemoglobin 9.2 GM/DL (12.0-16.0); Immature Granulocytes % 0.2 %; Immature Granulocytes Absolute 0.02 #; Lymphocytes % 11.8 % (21.3-54.2); Mean Corpuscular HGB Conc 33.1 GM/DL (32-36); Mean Corpuscular Hemoglobin 30 PG (27-34); Mean Corpuscular Volume 91.1 FL (87-102); Mean Platelet Volume 10.4 FL (9.6-12.0); Monocytes # 1.1 10*3/uL (0.11-0.8); Monocytes % 13.6 % (1.7-12.7); Neutrophils # 6.2 10*3/uL (1.4-7.4); Neutrophils % 74.2 % (38.7-73.9); Platelet Count 62 T/CUMM (130-400); Red Blood Count 3.05 MC/CUMM (3.8-5.5); Red Cell Distribution Width 17.5 % (9.3-17.3); White Blood Count 8.3 T/CUMM (4-12)
[2017-10-17 05:59] LABS: Hypochromasia 1+; Lymphocytes 9 % (20-55); Microcytosis 1+; Ovalocytes Slight; Platelet Estimate Decreased; Segmented Neutrophils 80 % (50-85); Total Cells Counted 100
[2017-10-17 06:03] LABS: Osmolality,Calculated 290.3 MOS/KG (273-304); Potassium 4.4 MMOL/L (3.5-5.1)
[2017-10-17] MEDS: POTASSIUM CHLORIDE RIDER 20 MEQ in PREMIX 1 EACH IV PRN (06:53)
[2017-10-17 07:15] LABS: Bilirubin,Total 2.2 MG/DL (0.2-1.0)
[2017-10-17 07:16] LABS: Albumin 2.7 G/DL (3.4-5.0); Total Protein 5.8 G/DL (6.4-8.3)
[2017-10-17 07:35] LABS: Bilirubin,Direct 0.989 MG/DL (0.0-0.20); Bilirubin,Indirect 1.2 MG/DL (0.0-1.0)
[2017-10-17] MEDS: CARVEDILOL 3.125 MG TABLET PO SCH ×2 (09:12→22:10)
[2017-10-17] MEDS: FUROSEMIDE 40 MG TABLET PO SCH (09:13)
[2017-10-17] MEDS: CHLORHEXIDINE 0.12% ORAL RINSE 60 ML BOTTLE SWISH/SPIT SCH ×2 (09:13→22:32)
[2017-10-17] MEDS: ASPIRIN EC 325 MG TABLET PO SCH (09:13)
[2017-10-17] MEDS: FAMOTIDINE 20 MG TABLET PO SCH ×2 (09:13→22:32)
[2017-10-17] MEDS ORDERED: LACTATED RINGERS 500 ML IV SCH (12:30)
[2017-10-17] MEDS: SODIUM CHLORIDE 0.45% 1,000 ML IV SCH (14:12)
[2017-10-17] MEDS: ATORVASTATIN 40 MG TABLET PO SCH (22:32)
[2017-10-18] MEDS: INSULIN REGULAR 100 UNIT/ML SUBCUT SCH ×6 (01:18→21:21)
[2017-10-18 05:40] LABS: Basophils % 0.2 % (0.0-0.8); Eosinophils % 0.3 % (0.00-10.9); Immature Granulocytes % 0.7 %; Immature Granulocytes Absolute 0.04 #; Lymphocytes % 16.6 % (21.3-54.2); Mean Corpuscular Hemoglobin 30 PG (27-34); Mean Corpuscular Volume 93.6 FL (87-102); Mean Platelet Volume 11.3 FL (9.6-12.0); Monocytes # 0.8 10*3/uL (0.11-0.8); Monocytes % 13.4 % (1.7-12.7); Neutrophils # 4.2 10*3/uL (1.4-7.4); Neutrophils % 68.8 % (38.7-73.9); Red Blood Count 2.67 MC/CUMM (3.8-5.5); Red Cell Distribution Width 16.7 % (9.3-17.3); White Blood Count 6.1 T/CUMM (4-12)
[2017-10-18 05:45] LABS: Platelet Count 56 T/CUMM (130-400)
[2017-10-18 06:08] LABS: Calcium 8.1 MG/DL (8.5-10.1); Osmolality,Calculated 288.5 MOS/KG (273-304); Potassium 4.2 MMOL/L (3.5-5.1)
[2017-10-18 06:09] LABS: Hypochromasia 1+; Platelet Estimate Decreased
[2017-10-18 06:10] LABS: Microcytosis Slight; Ovalocytes Slight
[2017-10-18] MEDS ORDERED: SODIUM CHLORIDE 0.9% 1,000 ML IV PRN (09:25)
[2017-10-18] MEDS ORDERED: FUROSEMIDE 40 MG/4 ML VIAL IV ONE (09:37)
[2017-10-18] MEDS: FAMOTIDINE 20 MG TABLET PO SCH ×2 (10:56→21:20)
[2017-10-18] MEDS: CARVEDILOL 3.125 MG TABLET PO SCH ×2 (10:57→21:20)
[2017-10-18] MEDS: CHLORHEXIDINE 0.12% ORAL RINSE 60 ML BOTTLE SWISH/SPIT SCH ×2 (10:57→21:21)
[2017-10-18] MEDS: FUROSEMIDE 40 MG TABLET PO SCH (10:57)
[2017-10-18] MEDS: ASPIRIN EC 325 MG TABLET PO SCH (10:57)
[2017-10-18] MEDS: ATORVASTATIN 40 MG TABLET PO SCH (21:20)
[2017-10-19] MEDS: INSULIN REGULAR 100 UNIT/ML SUBCUT SCH ×6 (01:07→21:41)
[2017-10-19 03:54] LABS: Basophils % 0.2 % (0.0-0.8); Eosinophils # 0.1 10*3/uL (0.0-0.87); Eosinophils % 2.3 % (0.00-10.9); Hematocrit 24.1 VOL% (35.7-47.0); Hemoglobin 8.2 GM/DL (12.0-16.0); Immature Granulocytes % 0.2 %; Immature Granulocytes Absolute 0.01 #; Lymphocytes # 1.1 10*3/uL (1.4-4.0); Lymphocytes % 25.3 % (21.3-54.2); Mean Corpuscular Hemoglobin 31 PG (27-34); Mean Corpuscular Volume 91.3 FL (87-102); Mean Platelet Volume 10.9 FL (9.6-12.0); Monocytes # 0.6 10*3/uL (0.11-0.8); Monocytes % 14.9 % (1.7-12.7); Neutrophils # 2.5 10*3/uL (1.4-7.4); Neutrophils % 57.1 % (38.7-73.9); Platelet Count 54 T/CUMM (130-400); Red Blood Count 2.64 MC/CUMM (3.8-5.5); Red Cell Distribution Width 16.5 % (9.3-17.3); White Blood Count 4.3 T/CUMM (4-12)
[2017-10-19 04:18] LABS: Calcium 8.1 MG/DL (8.5-10.1); Osmolality,Calculated 288.4 MOS/KG (273-304); Potassium 3.7 MMOL/L (3.5-5.1)
[2017-10-19 05:04] LABS: Eosinophils 3 % (0-10); Hypochromasia Slight; Lymphocytes 23 % (20-55); Microcytosis Slight; Nucleated Red Blood Cells 2 (0-5); Ovalocytes Slight; Platelet Estimate Decreased; Segmented Neutrophils 61 % (50-85); Total Cells Counted 100
[2017-10-19] MEDS: FUROSEMIDE 40 MG TABLET PO SCH (10:18)
[2017-10-19] MEDS: FAMOTIDINE 20 MG TABLET PO SCH ×2 (10:18→21:40)
[2017-10-19] MEDS: CARVEDILOL 3.125 MG TABLET PO SCH ×2 (10:19→21:41)
[2017-10-19] MEDS: ASPIRIN EC 325 MG TABLET PO SCH (10:19)
[2017-10-19] MEDS: CHLORHEXIDINE 0.12% ORAL RINSE 60 ML BOTTLE SWISH/SPIT SCH ×2 (10:19→21:42)
[2017-10-19] MEDS: ATORVASTATIN 40 MG TABLET PO SCH (21:40)
[2017-10-20] MEDS: INSULIN REGULAR 100 UNIT/ML SUBCUT SCH ×6 (00:17→22:31)
[2017-10-20 04:41] LABS: Eosinophils # 0.1 10*3/uL (0.0-0.87); Eosinophils % 2.1 % (0.00-10.9); Hematocrit 24.6 VOL% (35.7-47.0); Hemoglobin 8.5 GM/DL (12.0-16.0); Immature Granulocytes % 0.5 %; Immature Granulocytes Absolute 0.02 #; Lymphocytes # 1.2 10*3/uL (1.4-4.0); Lymphocytes % 30.1 % (21.3-54.2); Mean Corpuscular HGB Conc 34.6 GM/DL (32-36); Mean Corpuscular Hemoglobin 31 PG (27-34); Mean Corpuscular Volume 90.4 FL (87-102); Monocytes # 0.6 10*3/uL (0.11-0.8); Monocytes % 15.2 % (1.7-12.7); Neutrophils % 52.1 % (38.7-73.9); Red Blood Count 2.72 MC/CUMM (3.8-5.5); Red Cell Distribution Width 16.7 % (9.3-17.3); White Blood Count 3.9 T/CUMM (4-12)
[2017-10-20 04:49] LABS: Platelet Count 68 T/CUMM (130-400)
[2017-10-20 05:13] LABS: Calcium 7.7 MG/DL (8.5-10.1); Osmolality,Calculated 284.5 MOS/KG (273-304); Potassium 3.8 MMOL/L (3.5-5.1)
[2017-10-20 05:22] LABS: Hypochromasia 1+; Microcytosis 1+; Platelet Estimate Decreased; Polychromasia Few
[2017-10-20] MEDS ORDERED: LACTATED RINGERS 250 ML IV ONE (06:39)
[2017-10-20] MEDS: MAGNESIUM SULF RIDER 2 GM in PREMIX 1 EACH IV PRN ×2 (06:47→08:50)
[2017-10-20] MEDS ORDERED: CALCIUM GLUCONATE 1,000 MG in SODIUM CHLORIDE 0.9% 100 ML IV ONE ×2 (07:30→11:00)
[2017-10-20] MEDS ORDERED: SODIUM CHLORIDE 0.9% 1,000 ML IV PRN ×3 (07:31→14:58)
[2017-10-20] MEDS: ASPIRIN EC 325 MG TABLET PO SCH (08:31)
[2017-10-20] MEDS: CHLORHEXIDINE 0.12% ORAL RINSE 60 ML BOTTLE SWISH/SPIT SCH ×2 (08:31→22:32)
[2017-10-20] MEDS: CARVEDILOL 3.125 MG TABLET PO SCH (08:31)
[2017-10-20] MEDS: FAMOTIDINE 20 MG TABLET PO SCH ×2 (08:31→22:31)
[2017-10-20] MEDS ORDERED: MAGNESIUM SULF RIDER 2 GM in PREMIX 1 EACH IV ONE (08:34)
[2017-10-20] MEDS ORDERED: MAGNESIUM SULF RIDER 4 GM in PREMIX 1 EACH IV ONE (10:42)
[2017-10-20] MEDS: FUROSEMIDE 20 MG TABLET PO SCH (12:46)
[2017-10-20 16:37] LABS: Apearance,Urine CLOUDY (Clear); Bacteria,Urine Moderate /HPF (Few); Bilirubin,Urine Negative (Negative); Blood, Urine Small mg/dL (Negative); Glucose,Urine (UA) >=500 mg/dL (Negative); Ketones,Urine Negative (Negative); Nitrite,Urine Negative (Negative); Protein,Urine 30 MG/DL; RBC,Urine 1 /HPF (0-4); Squamous Epithelial Cell,Urine Occasional /HPF (0-10); Urine Color Yellow (Yellow); Urine Specific Gravity 1.011 (1.001-1.035); WBC,Urine 51 /HPF (0-6)
[2017-10-20] MEDS ORDERED: FUROSEMIDE 20 MG TABLET PO ONE (16:44)
[2017-10-20] MEDS: traMADol 50 MG TABLET PO PRN (21:10)
[2017-10-20] MEDS: ATORVASTATIN 40 MG TABLET PO SCH (22:31)
[2017-10-20] MEDS: MAGNESIUM OXIDE 400 MG TABLET PO SCH (22:31)
[2017-10-20] MEDS: LEVOFLOXACIN 750 MG TABLET PO SCH (22:31)
[2017-10-21] MEDS: INSULIN REGULAR 100 UNIT/ML SUBCUT SCH ×6 (02:11→22:35)
[2017-10-21 05:36] LABS: Basophils % 0.3 % (0.0-0.8); Eosinophils # 0.1 10*3/uL (0.0-0.87); Eosinophils % 1.7 % (0.00-10.9); Hematocrit 33.7 VOL% (35.7-47.0); Immature Granulocytes % 0.8 %; Immature Granulocytes Absolute 0.05 #; Lymphocytes # 1.1 10*3/uL (1.4-4.0); Lymphocytes % 17.6 % (21.3-54.2); Mean Corpuscular HGB Conc 34.1 GM/DL (32-36); Mean Corpuscular Hemoglobin 31 PG (27-34); Mean Corpuscular Volume 91.3 FL (87-102); Mean Platelet Volume 10.7 FL (9.6-12.0); Monocytes % 15.3 % (1.7-12.7); Neutrophils # 4.1 10*3/uL (1.4-7.4); Neutrophils % 64.3 % (38.7-73.9); Platelet Count 86 T/CUMM (130-400); Red Blood Count 3.69 MC/CUMM (3.8-5.5); White Blood Count 6.3 T/CUMM (4-12)
[2017-10-21 05:43] LABS: Hemoglobin 11.5 GM/DL (12.0-16.0)
[2017-10-21] MEDS: traMADol 50 MG TABLET PO PRN (05:59)
[2017-10-21 06:05] LABS: Calcium 8.4 MG/DL (8.5-10.1); Osmolality,Calculated 278.7 MOS/KG (273-304); Potassium 3.7 MMOL/L (3.5-5.1)
[2017-10-21 06:09] LABS: Eosinophils 1 % (0-10); Hypochromasia 1+; Lymphocytes 17 % (20-55); Ovalocytes Slight; Platelet Estimate Decreased; Segmented Neutrophils 68 % (50-85); Total Cells Counted 100
[2017-10-21 06:12] LABS: Microcytosis 1+
[2017-10-21] MEDS: FAMOTIDINE 20 MG TABLET PO SCH ×2 (09:32→22:36)
[2017-10-21] MEDS: ASPIRIN EC 325 MG TABLET PO SCH (09:32)
[2017-10-21] MEDS: FUROSEMIDE 20 MG TABLET PO SCH (09:32)
[2017-10-21] MEDS: MAGNESIUM OXIDE 400 MG TABLET PO SCH ×2 (09:32→22:37)
[2017-10-21] MEDS: CHLORHEXIDINE 0.12% ORAL RINSE 60 ML BOTTLE SWISH/SPIT SCH ×2 (09:36→22:37)
[2017-10-21] MEDS ORDERED: DIGOXIN 0.5 MG/2 ML AMP IV ONE ×2 (10:49→16:00)
[2017-10-21] MEDS: METOPROLOL TARTRATE 25 MG TABLET PO SCH ×2 (13:04→22:36)
[2017-10-21] MEDS: LEVOFLOXACIN 750 MG TABLET PO SCH (22:36)
[2017-10-21] MEDS: ATORVASTATIN 40 MG TABLET PO SCH (22:37)
[2017-10-22] MEDS: INSULIN REGULAR 100 UNIT/ML SUBCUT SCH ×5 (01:47→18:01)
[2017-10-22 05:24] LABS: Osmolality,Calculated 277.8 MOS/KG (273-304); Potassium 3.7 MMOL/L (3.5-5.1)
[2017-10-22] MEDS: ONDANSETRON 4 MG/2 ML VIAL IV PRN ×2 (06:31→12:16)
[2017-10-22] MEDS: MAGNESIUM OXIDE 400 MG TABLET PO SCH ×2 (10:15→21:22)
[2017-10-22] MEDS: FAMOTIDINE 20 MG TABLET PO SCH ×2 (10:15→21:20)
[2017-10-22] MEDS: FUROSEMIDE 20 MG TABLET PO SCH (10:17)
[2017-10-22] MEDS: METOPROLOL TARTRATE 25 MG TABLET PO SCH ×2 (10:18→21:17)
[2017-10-22] MEDS: ASPIRIN EC 325 MG TABLET PO SCH (10:18)
[2017-10-22] MEDS: CHLORHEXIDINE 0.12% ORAL RINSE 60 ML BOTTLE SWISH/SPIT SCH ×2 (10:19→21:21)
[2017-10-22] MEDS: traMADol 50 MG TABLET PO PRN (12:17)
[2017-10-22] MEDS: SULFAMETHOX/TRIMETHOPRIM 800-160 MG TABLET PO SCH ×2 (12:17→21:19)
[2017-10-22] MEDS ORDERED: ALUMINUM/MAGNES/SIMETH MAX STR 30 ML UDCUP PO PRN (19:34)
[2017-10-22] MEDS: ATORVASTATIN 40 MG TABLET PO SCH (21:19)
[2017-10-23] MEDS: INSULIN REGULAR 100 UNIT/ML SUBCUT SCH ×7 (00:46→22:00)
[2017-10-23] MEDS: FAMOTIDINE 20 MG TABLET PO SCH ×2 (08:50→21:18)
[2017-10-23] MEDS: MAGNESIUM OXIDE 400 MG TABLET PO SCH ×2 (08:51→21:18)
[2017-10-23] MEDS: FUROSEMIDE 20 MG TABLET PO SCH (08:51)
[2017-10-23] MEDS: ASPIRIN EC 325 MG TABLET PO SCH (08:51)
[2017-10-23] MEDS: SULFAMETHOX/TRIMETHOPRIM 800-160 MG TABLET PO SCH ×2 (08:51→21:18)
[2017-10-23] MEDS: METOPROLOL TARTRATE 25 MG TABLET PO SCH ×2 (08:51→21:18)
[2017-10-23] MEDS: CHLORHEXIDINE 0.12% ORAL RINSE 60 ML BOTTLE SWISH/SPIT SCH (09:16)
[2017-10-23] MEDS ORDERED: AMIODARONE INJ 150 MG in DEXTROSE 5% 100 ML IV ONE (11:40)
[2017-10-23] MEDS ORDERED: AMIODARONE 150 MG/3 ML VIAL ONE (11:42)
[2017-10-23] MEDS ORDERED: AMIODARONE INJ 450 MG in DEXTROSE 5% 241 ML IV SCH (12:00)
[2017-10-23] MEDS ORDERED: LACTATED RINGERS 250 ML IV ONE (13:49)
[2017-10-23] MEDS: ATORVASTATIN 40 MG TABLET PO SCH (21:18)
[2017-10-24] MEDS: CHLORHEXIDINE 0.12% ORAL RINSE 60 ML BOTTLE SWISH/SPIT SCH ×3 (05:42→20:47)
[2017-10-24] MEDS: INSULIN REGULAR 100 UNIT/ML SUBCUT SCH ×5 (05:43→20:48)
[2017-10-24] MEDS: traMADol 50 MG TABLET PO PRN (09:13)
[2017-10-24] MEDS: FUROSEMIDE 20 MG TABLET PO SCH (09:14)
[2017-10-24] MEDS: METOPROLOL TARTRATE 25 MG TABLET PO SCH ×2 (09:15→20:47)
[2017-10-24] MEDS: SULFAMETHOX/TRIMETHOPRIM 800-160 MG TABLET PO SCH ×2 (09:15→20:46)
[2017-10-24] MEDS: MAGNESIUM OXIDE 400 MG TABLET PO SCH ×2 (09:15→20:47)
[2017-10-24] MEDS: ASPIRIN EC 325 MG TABLET PO SCH (09:15)
[2017-10-24] MEDS: FAMOTIDINE 20 MG TABLET PO SCH ×2 (09:15→20:46)
[2017-10-24 12:24] LABS: Osmolality,Calculated 280.1 MOS/KG (273-304); Potassium 4.4 MMOL/L (3.5-5.1)
[2017-10-24 18:30] LABS: Apearance,Urine Slightly Hazy (Clear); Bacteria,Urine Occasional /HPF (Few); Bilirubin,Urine Negative (Negative); Blood, Urine Negative (Negative); Glucose,Urine (UA) 150 mg/dL (Negative); Granular Casts,Urine 3 /LPF (0-1); Hyaline Casts,Urine 16 /LPF (0-3); Ketones,Urine Negative (Negative); Mucus,Urine Occasional /LPF (Occasional); Nitrite,Urine Negative (Negative); Protein,Urine 30 MG/DL; RBC,Urine 1 /HPF (0-4); Squamous Epithelial Cell,Urine Occasional /HPF (0-10); Urine Color Amber (Yellow); Urine Specific Gravity 1.014 (1.001-1.035); WBC,Urine 17 /HPF (0-6)
[2017-10-24] MEDS: ATORVASTATIN 40 MG TABLET PO SCH (20:47)
[2017-10-24] MEDS: ONDANSETRON 4 MG/2 ML VIAL IV PRN (20:49)
[2017-10-25] MEDS: INSULIN REGULAR 100 UNIT/ML SUBCUT SCH ×6 (02:19→20:54)
[2017-10-25 03:54] LABS: Calcium 7.9 MG/DL (8.5-10.1); Potassium 4.3 MMOL/L (3.5-5.1)
[2017-10-25] MEDS: FAMOTIDINE 20 MG TABLET PO SCH ×2 (08:57→20:51)
[2017-10-25] MEDS: MAGNESIUM OXIDE 400 MG TABLET PO SCH ×2 (08:57→20:51)
[2017-10-25] MEDS: FUROSEMIDE 20 MG TABLET PO SCH (08:57)
[2017-10-25] MEDS: SULFAMETHOX/TRIMETHOPRIM 800-160 MG TABLET PO SCH ×2 (08:58→20:52)
[2017-10-25] MEDS: METOPROLOL TARTRATE 25 MG TABLET PO SCH ×2 (08:58→20:52)
[2017-10-25] MEDS: ASPIRIN EC 325 MG TABLET PO SCH (08:58)
[2017-10-25] MEDS: CHLORHEXIDINE 0.12% ORAL RINSE 60 ML BOTTLE SWISH/SPIT SCH ×2 (08:58→20:53)
[2017-10-25] MEDS: ATORVASTATIN 40 MG TABLET PO SCH (20:51)
[2017-10-26] MEDS: INSULIN REGULAR 100 UNIT/ML SUBCUT SCH ×7 (01:26→23:27)
[2017-10-26 05:46] LABS: Osmolality,Calculated 276.1 MOS/KG (273-304); Potassium 4.3 MMOL/L (3.5-5.1)
[2017-10-26] MEDS: FAMOTIDINE 20 MG TABLET PO SCH ×2 (09:47→21:28)
[2017-10-26] MEDS: ASPIRIN EC 325 MG TABLET PO SCH (09:48)
[2017-10-26] MEDS: CHLORHEXIDINE 0.12% ORAL RINSE 60 ML BOTTLE SWISH/SPIT SCH ×2 (09:48→21:58)
[2017-10-26] MEDS: MAGNESIUM OXIDE 400 MG TABLET PO SCH ×2 (09:48→21:28)
[2017-10-26] MEDS: METOPROLOL TARTRATE 25 MG TABLET PO SCH ×2 (09:48→21:29)
[2017-10-26] MEDS: SULFAMETHOX/TRIMETHOPRIM 800-160 MG TABLET PO SCH ×2 (09:48→21:28)
[2017-10-26] MEDS: FUROSEMIDE 20 MG TABLET PO SCH (09:48)
[2017-10-26] MEDS ORDERED: ALUMINUM/MAGNES/SIMETH MAX STR 30 ML UDCUP PO PRN (10:26)
[2017-10-26] MEDS: LISINOPRIL 2.5 MG TABLET PO SCH (12:29)
[2017-10-26] MEDS: ATORVASTATIN 40 MG TABLET PO SCH (21:28)
[2017-10-27] MEDS: INSULIN REGULAR 100 UNIT/ML SUBCUT SCH ×5 (04:12→21:34)
[2017-10-27 05:54] LABS: Calcium 8.2 MG/DL (8.5-10.1); Osmolality,Calculated 275.1 MOS/KG (273-304); Potassium 3.8 MMOL/L (3.5-5.1)
[2017-10-27] MEDS: MAGNESIUM OXIDE 400 MG TABLET PO SCH ×2 (10:50→21:37)
[2017-10-27] MEDS: FAMOTIDINE 20 MG TABLET PO SCH ×2 (10:50→21:37)
[2017-10-27] MEDS: LISINOPRIL 2.5 MG TABLET PO SCH (10:50)
[2017-10-27] MEDS: ASPIRIN EC 325 MG TABLET PO SCH (10:51)
[2017-10-27] MEDS: METOPROLOL TARTRATE 25 MG TABLET PO SCH ×2 (10:51→21:37)
[2017-10-27] MEDS: FUROSEMIDE 20 MG TABLET PO SCH (10:51)
[2017-10-27] MEDS: CHLORHEXIDINE 0.12% ORAL RINSE 60 ML BOTTLE SWISH/SPIT SCH ×2 (10:52→22:03)
[2017-10-27] MEDS: ATORVASTATIN 40 MG TABLET PO SCH (21:37)
[2017-10-28] MEDS: INSULIN REGULAR 100 UNIT/ML SUBCUT SCH ×4 (02:52→11:18)
[2017-10-28 06:06] LABS: Basophils % 0.2 % (0.0-0.8); Eosinophils # 0.1 10*3/uL (0.0-0.87); Hematocrit 33.9 VOL% (35.7-47.0); Hemoglobin 11.8 GM/DL (12.0-16.0); Immature Granulocytes % 0.4 %; Immature Granulocytes Absolute 0.03 #; Lymphocytes # 1.2 10*3/uL (1.4-4.0); Lymphocytes % 14.5 % (21.3-54.2); Mean Corpuscular HGB Conc 34.8 GM/DL (32-36); Mean Corpuscular Hemoglobin 31 PG (27-34); Mean Corpuscular Volume 89.2 FL (87-102); Mean Platelet Volume 9.8 FL (9.6-12.0); Monocytes % 12.2 % (1.7-12.7); Neutrophils # 5.9 10*3/uL (1.4-7.4); Neutrophils % 71.7 % (38.7-73.9); Red Cell Distribution Width 17.8 % (9.3-17.3); White Blood Count 8.3 T/CUMM (4-12)
[2017-10-28 06:07] LABS: Platelet Count 79 T/CUMM (130-400)
[2017-10-28 06:26] LABS: Hypochromasia 1+; Microcytosis 1+; Platelet Estimate Decreased
[2017-10-28 06:32] LABS: Calcium 7.8 MG/DL (8.5-10.1); Osmolality,Calculated 280.7 MOS/KG (273-304); Potassium 3.8 MMOL/L (3.5-5.1)
[2017-10-28] MEDS: ASPIRIN EC 325 MG TABLET PO SCH (11:16)
[2017-10-28] MEDS: MAGNESIUM OXIDE 400 MG TABLET PO SCH (11:16)
[2017-10-28] MEDS: FAMOTIDINE 20 MG TABLET PO SCH (11:16)
[2017-10-28] MEDS: LISINOPRIL 2.5 MG TABLET PO SCH (11:17)
[2017-10-28] MEDS: CHLORHEXIDINE 0.12% ORAL RINSE 60 ML BOTTLE SWISH/SPIT SCH (11:17)
[2017-10-28] MEDS: METOPROLOL TARTRATE 25 MG TABLET PO SCH (11:17)
[2017-10-28] MEDS: FUROSEMIDE 20 MG TABLET PO SCH (11:18)
[2017-10-28] MEDS ORDERED: AMOXICILLIN/CLAV 500 MG TABLET PO SCH (11:30)
[2017-10-28 19:29] VITALS: BP 95/52
== END 2017-10-28 16:57 | disposition home or self-care (01) | DRG 233 ==
LOC: N.ED 05:23 → N.EDINP 06:22 → SUATTDRO 06:22 → N.TELEN 06:48 → N.CVR 10-15 08:56 → N.ICU 10-16 16:33 → N.TELES 10-17 15:28
PROVIDERS: ADMIT Internal Medicine; ATTEND Internal Medicine Cardiovascular Disease
PROC: CLCCHCL (ICD-10-PCS; 2017-10-13 12:45)

== ENCOUNTER 2017-11-23 04:02 | Inpatient (IN) ==
[2017-11-23 04:51] LABS: Basophils % 0.3 % (0.0-0.8); Eosinophils % 0.5 % (0.00-10.9); Hematocrit 34.9 VOL% (35.7-47.0); Hemoglobin 11.9 GM/DL (12.0-16.0); Immature Granulocytes % 0.5 %; Immature Granulocytes Absolute 0.03 #; Lymphocytes # 1.3 10*3/uL (1.4-4.0); Lymphocytes % 21.4 % (21.3-54.2); Mean Corpuscular HGB Conc 34.1 GM/DL (32-36); Mean Corpuscular Hemoglobin 32 PG (27-34); Mean Corpuscular Volume 92.6 FL (87-102); Mean Platelet Volume 9.9 FL (9.6-12.0); Monocytes # 0.7 10*3/uL (0.11-0.8); Monocytes % 10.7 % (1.7-12.7); Neutrophils # 4.2 10*3/uL (1.4-7.4); Neutrophils % 66.6 % (38.7-73.9); Platelet Count 106 T/CUMM (130-400); Red Blood Count 3.77 MC/CUMM (3.8-5.5); Red Cell Distribution Width 20.3 % (9.3-17.3); White Blood Count 6.3 T/CUMM (4-12)
[2017-11-23] MEDS ORDERED: LORazepam 2 MG/1 ML VIAL IV STA (04:56)
[2017-11-23 05:03] LABS: INR 1.2; PT Patient Result 12.5 SECS; Partial Thromboplastin Time 27.9 SECS (0-40)
[2017-11-23 05:06] LABS: Apearance,Urine CLEAR (Clear); Bacteria,Urine Occasional /HPF (Few); Bilirubin,Urine Negative (Negative); Blood, Urine Negative (Negative); Glucose,Urine (UA) >=500 mg/dL (Negative); Ketones,Urine Negative (Negative); Nitrite,Urine Negative (Negative); Protein,Urine Negative; RBC,Urine 2 /HPF (0-4); Squamous Epithelial Cell,Urine Occasional /HPF (0-10); Urine Color Yellow (Yellow); Urine Specific Gravity 1.012 (1.001-1.035); WBC,Urine 4 /HPF (0-6)
[2017-11-23 05:28] LABS: Bilirubin,Total 2.3 MG/DL (0.2-1.0); Calcium 9.1 MG/DL (8.5-10.1); Osmolality,Calculated 288.3 MOS/KG (273-304); Potassium 3.6 MMOL/L (3.5-5.1)
[2017-11-23 05:34] LABS: Barbiturates Screen,Urine Negative (Negative); Benzodiazepines Screen,Urine Negative (Negative); Cannabinoid Screen,Urine Negative (Negative); Opiate Screen,Urine Negative (Negative); Phencyclidine Screen,Urine Negative (Negative)
[2017-11-23] MEDS ORDERED: LACTULOSE 20 GM/30 ML UDCUP ONE (06:25)
[2017-11-23] MEDS ORDERED: LACTULOSE 20 GM/30 ML UDCUP NG STA (06:28)
[2017-11-23] MEDS ORDERED: RIFAXIMIN 550 MG TABLET NG STA (06:28)
[2017-11-23] MEDS ORDERED: ONDANSETRON 4 MG/2 ML VIAL IV PRN (06:36)
[2017-11-23] MEDS: SODIUM CHLORIDE 0.9% 1,000 ML IV SCH ×2 (06:50→07:14)
[2017-11-23] MEDS: cefTRIAXone 1,000 MG in SYRINGE 1 EACH IV SCH (07:23)
[2017-11-23] MEDS: AZITHROMYCIN INJ 500 MG in SODIUM CHLORIDE 0.9% 250 ML IV SCH (07:27)
[2017-11-23] MEDS ORDERED: RIFAXIMIN 550 MG TABLET NG SCH (09:00)
[2017-11-23] MEDS: PANTOPRAZOLE 40 MG VIAL IV SCH (09:03)
[2017-11-23] MEDS: METOPROLOL TARTRATE 25 MG TABLET PO SCH ×2 (09:03→20:31)
[2017-11-23] MEDS: ASPIRIN CHEW 81 MG TABLET PO SCH (09:03)
[2017-11-23] MEDS: LACTULOSE 20 GM/30 ML UDCUP NG SCH ×4 (10:02→21:29)
[2017-11-23] MEDS: RIFAXIMIN 550 MG TABLET NG SCH (20:31)
[2017-11-24] MEDS: LACTULOSE 20 GM/30 ML UDCUP NG SCH ×4 (01:20→21:04)
[2017-11-24 05:02] LABS: Basophils % 0.2 % (0.0-0.8); Eosinophils # 0.1 10*3/uL (0.0-0.87); Eosinophils % 2.2 % (0.00-10.9); Hematocrit 26.6 VOL% (35.7-47.0); Hemoglobin 8.4 GM/DL (12.0-16.0); Immature Granulocytes % 0.7 %; Immature Granulocytes Absolute 0.03 #; Lymphocytes % 22.8 % (21.3-54.2); Mean Corpuscular HGB Conc 31.6 GM/DL (32-36); Mean Corpuscular Hemoglobin 31 PG (27-34); Mean Corpuscular Volume 98.9 FL (87-102); Mean Platelet Volume 9.5 FL (9.6-12.0); Monocytes # 0.5 10*3/uL (0.11-0.8); Neutrophils # 2.5 10*3/uL (1.4-7.4); Neutrophils % 61.1 % (38.7-73.9); Platelet Count 65 T/CUMM (130-400); Red Blood Count 2.69 MC/CUMM (3.8-5.5); Red Cell Distribution Width 21.1 % (9.3-17.3); White Blood Count 4.2 T/CUMM (4-12)
[2017-11-24 05:36] LABS: Albumin 1.6 G/DL (3.4-5.0); Bilirubin,Total 2.1 MG/DL (0.2-1.0); Calcium 7.4 MG/DL (8.5-10.1); Osmolality,Calculated 294.6 MOS/KG (273-304); Potassium 3.1 MMOL/L (3.5-5.1); Total Protein 6.1 G/DL (6.4-8.3)
[2017-11-24 05:37] LABS: Eosinophils 3 % (0-10); Hypochromasia 1+; Lymphocytes 7 % (20-55); Platelet Estimate Decreased; Segmented Neutrophils 79 % (50-85); Total Cells Counted 100
[2017-11-24 05:38] LABS: Microcytosis Slight; Ovalocytes Slight
[2017-11-24] MEDS: cefTRIAXone 1,000 MG in SYRINGE 1 EACH IV SCH (06:34)
[2017-11-24] MEDS: PANTOPRAZOLE 40 MG VIAL IV SCH (08:03)
[2017-11-24] MEDS: METOPROLOL TARTRATE 25 MG TABLET PO SCH ×2 (08:03→20:18)
[2017-11-24] MEDS: RIFAXIMIN 550 MG TABLET NG SCH ×2 (08:03→20:18)
[2017-11-24] MEDS: ASPIRIN CHEW 81 MG TABLET PO SCH (08:04)
[2017-11-24] MEDS: SODIUM CHLORIDE 0.9% 1,000 ML IV SCH ×2 (08:09→10:42)
[2017-11-24] MEDS: AZITHROMYCIN INJ 500 MG in SODIUM CHLORIDE 0.9% 250 ML IV SCH (12:30)
[2017-11-24] MEDS: DESITIN 4OZ/NYSTATIN 15 GRAM MIXTURE PASTE TOP SCH ×2 (13:41→20:19)
[2017-11-24] MEDS ORDERED: POTASSIUM CHLORIDE 20 MEQ TABLET PO ONE (14:51)
[2017-11-24 15:12] LABS: Hemoglobin 11.3 GM/DL (12.0-16.0)
[2017-11-25 01:21] LABS: Basophils % 0.8 % (0.0-0.8); Eosinophils # 0.2 10*3/uL (0.0-0.87); Eosinophils % 3.7 % (0.00-10.9); Hematocrit 30.7 VOL% (35.7-47.0); Hemoglobin 10.4 GM/DL (12.0-16.0); Immature Granulocytes % 0.8 %; Immature Granulocytes Absolute 0.04 #; Lymphocytes # 1.4 10*3/uL (1.4-4.0); Lymphocytes % 28.7 % (21.3-54.2); Mean Corpuscular HGB Conc 33.9 GM/DL (32-36); Mean Corpuscular Hemoglobin 32 PG (27-34); Mean Corpuscular Volume 93.3 FL (87-102); Mean Platelet Volume 10.2 FL (9.6-12.0); Monocytes # 0.6 10*3/uL (0.11-0.8); Monocytes % 12.4 % (1.7-12.7); NRBC # 0.02 10*3/uL; Neutrophils # 2.6 10*3/uL (1.4-7.4); Neutrophils % 53.6 % (38.7-73.9); Platelet Count 92 T/CUMM (130-400); Red Blood Count 3.29 MC/CUMM (3.8-5.5); Red Cell Distribution Width 21.1 % (9.3-17.3); White Blood Count 4.8 T/CUMM (4-12)
[2017-11-25 01:37] LABS: Calcium 7.7 MG/DL (8.5-10.1); Potassium 3.2 MMOL/L (3.5-5.1)
[2017-11-25 01:41] LABS: Albumin 1.4 G/DL (3.4-5.0); Bilirubin,Direct 0.82 MG/DL (0.0-0.20); Bilirubin,Indirect 0.9 MG/DL (0.0-1.0); Bilirubin,Total 1.7 MG/DL (0.2-1.0)
[2017-11-25 01:49] LABS: Hematocrit 30.6 VOL% (35.7-47.0); Hemoglobin 10.3 GM/DL (12.0-16.0)
[2017-11-25 02:03] LABS: Platelet Estimate Decreased
[2017-11-25 02:04] LABS: Macrocytosis 1+
[2017-11-25] MEDS: SODIUM CHLORIDE 0.9% 1,000 ML IV SCH (02:54)
[2017-11-25] MEDS: AZITHROMYCIN INJ 500 MG in SODIUM CHLORIDE 0.9% 250 ML IV SCH (06:03)
[2017-11-25] MEDS: LACTULOSE 20 GM/30 ML UDCUP NG SCH ×3 (06:03→21:58)
[2017-11-25] MEDS: cefTRIAXone 1,000 MG in SYRINGE 1 EACH IV SCH (06:04)
[2017-11-25] MEDS ORDERED: POTASSIUM CHLORIDE 20 MEQ TABLET PO ONE ×2 (07:33→14:00)
[2017-11-25 08:05] LABS: Hematocrit 33.5 VOL% (35.7-47.0); Hemoglobin 11.1 GM/DL (12.0-16.0)
[2017-11-25] MEDS: RIFAXIMIN 550 MG TABLET NG SCH ×2 (09:30→21:59)
[2017-11-25] MEDS: METOPROLOL TARTRATE 25 MG TABLET PO SCH ×2 (09:30→21:58)
[2017-11-25] MEDS: ASPIRIN CHEW 81 MG TABLET PO SCH (09:31)
[2017-11-25] MEDS: PANTOPRAZOLE 40 MG VIAL IV SCH (09:31)
[2017-11-25] MEDS: DESITIN 4OZ/NYSTATIN 15 GRAM MIXTURE PASTE TOP SCH ×2 (09:40→22:04)
[2017-11-25] MEDS ORDERED: GLUCAGON 1 MG VIAL IM PRN (10:01)
[2017-11-25] MEDS ORDERED: DEXTROSE 50% 25 GM/50 ML VIAL IV PRN (10:01)
[2017-11-25] MEDS: INSULIN LISPRO 100 UNIT/ML SUBCUT SCH ×3 (12:10→21:59)
[2017-11-25 16:04] LABS: Hematocrit 34.6 VOL% (35.7-47.0); Hemoglobin 11.2 GM/DL (12.0-16.0)
[2017-11-26 04:32] LABS: Basophils % 0.6 % (0.0-0.8); Eosinophils # 0.2 10*3/uL (0.0-0.87); Hematocrit 31.5 VOL% (35.7-47.0); Hemoglobin 10.3 GM/DL (12.0-16.0); Immature Granulocytes % 0.4 %; Immature Granulocytes Absolute 0.02 #; Lymphocytes # 1.5 10*3/uL (1.4-4.0); Lymphocytes % 27.7 % (21.3-54.2); Mean Corpuscular HGB Conc 32.7 GM/DL (32-36); Mean Corpuscular Hemoglobin 32 PG (27-34); Mean Corpuscular Volume 97.2 FL (87-102); Mean Platelet Volume 9.9 FL (9.6-12.0); Monocytes # 0.7 10*3/uL (0.11-0.8); Monocytes % 12.7 % (1.7-12.7); Neutrophils # 2.9 10*3/uL (1.4-7.4); Neutrophils % 55.6 % (38.7-73.9); Platelet Count 89 T/CUMM (130-400); Red Blood Count 3.24 MC/CUMM (3.8-5.5); Red Cell Distribution Width 20.7 % (9.3-17.3); White Blood Count 5.3 T/CUMM (4-12)
[2017-11-26 04:55] LABS: Eosinophils 3 % (0-10); Lymphocytes 13 % (20-55); Segmented Neutrophils 73 % (50-85); Total Cells Counted 100
[2017-11-26 04:56] LABS: Hypochromasia 1+; Microcytosis Slight; Platelet Estimate Decreased
[2017-11-26 05:03] LABS: Albumin 1.6 G/DL (3.4-5.0); Bilirubin,Direct 0.81 MG/DL (0.0-0.20); Bilirubin,Total 1.8 MG/DL (0.2-1.0); Total Protein 6.6 G/DL (6.4-8.3)
[2017-11-26 05:10] LABS: Albumin 1.6 G/DL (3.4-5.0); Osmolality,Calculated 287.4 MOS/KG (273-304); Potassium 4.2 MMOL/L (3.5-5.1); Total Protein 6.7 G/DL (6.4-8.3)
[2017-11-26] MEDS: cefTRIAXone 1,000 MG in SYRINGE 1 EACH IV SCH (06:34)
[2017-11-26] MEDS: LACTULOSE 20 GM/30 ML UDCUP NG SCH (06:34)
[2017-11-26] MEDS: AZITHROMYCIN INJ 500 MG in SODIUM CHLORIDE 0.9% 250 ML IV SCH (06:38)
[2017-11-26] MEDS ORDERED: LIDOCAINE 2% 5 ML VIAL ONE (07:43)
[2017-11-26] MEDS ORDERED: PROPOFOL 200 MG/20 ML VIAL IV ONE (07:43)
[2017-11-26] MEDS: INSULIN LISPRO 100 UNIT/ML SUBCUT SCH ×4 (08:11→21:17)
[2017-11-26] MEDS: ASPIRIN CHEW 81 MG TABLET PO SCH (09:25)
[2017-11-26] MEDS: METOPROLOL TARTRATE 25 MG TABLET PO SCH ×2 (09:25→21:17)
[2017-11-26] MEDS: DESITIN 4OZ/NYSTATIN 15 GRAM MIXTURE PASTE TOP SCH ×2 (09:25→21:22)
[2017-11-26] MEDS: PANTOPRAZOLE 40 MG VIAL IV SCH (09:25)
[2017-11-26] MEDS: RIFAXIMIN 550 MG TABLET NG SCH ×2 (09:25→21:17)
[2017-11-26] MEDS ORDERED: ALUMINUM/MAGNES/SIMETH MAX STR 30 ML UDCUP PO ONE (09:31)
[2017-11-26] MEDS ORDERED: PNEUMOCOCCAL VACCINE (23 VALENT) 0.5 ML VIAL IM ONE (12:00)
[2017-11-26] MEDS: METOCLOPRAMIDE 10 MG/10 ML UDCUP PO SCH ×3 (12:36→21:16)
[2017-11-26 13:35] LABS: Mitochondrial Antibody (M2) <0.1 U
[2017-11-26] MEDS: LACTULOSE 20 GM/30 ML UDCUP PO SCH ×2 (14:39→21:16)
[2017-11-27 05:12] LABS: Basophils % 0.4 % (0.0-0.8); Eosinophils # 0.2 10*3/uL (0.0-0.87); Eosinophils % 3.5 % (0.00-10.9); Hematocrit 28.9 VOL% (35.7-47.0); Hemoglobin 9.8 GM/DL (12.0-16.0); Immature Granulocytes % 0.2 %; Immature Granulocytes Absolute 0.01 #; Lymphocytes # 1.6 10*3/uL (1.4-4.0); Lymphocytes % 30.5 % (21.3-54.2); Mean Corpuscular HGB Conc 33.9 GM/DL (32-36); Mean Corpuscular Hemoglobin 32 PG (27-34); Mean Corpuscular Volume 94.4 FL (87-102); Mean Platelet Volume 10.4 FL (9.6-12.0); Monocytes # 0.6 10*3/uL (0.11-0.8); Neutrophils # 2.9 10*3/uL (1.4-7.4); Neutrophils % 54.4 % (38.7-73.9); Platelet Count 80 T/CUMM (130-400); Red Blood Count 3.06 MC/CUMM (3.8-5.5); Red Cell Distribution Width 20.9 % (9.3-17.3); White Blood Count 5.4 T/CUMM (4-12)
[2017-11-27 05:44] LABS: Albumin 1.6 G/DL (3.4-5.0); Calcium 7.8 MG/DL (8.5-10.1); Osmolality,Calculated 285.4 MOS/KG (273-304); Potassium 3.9 MMOL/L (3.5-5.1); Total Protein 6.3 G/DL (6.4-8.3)
[2017-11-27 05:45] LABS: Eosinophils 3 % (0-10); Lymphocytes 19 % (20-55); Platelet Estimate Decreased; Segmented Neutrophils 67 % (50-85); Total Cells Counted 100
[2017-11-27 05:46] LABS: Burr Cells Slight; Hypochromasia 1+; Microcytosis Slight; Ovalocytes Slight
[2017-11-27] MEDS: LACTULOSE 20 GM/30 ML UDCUP PO SCH ×4 (06:10→21:03)
[2017-11-27] MEDS: cefTRIAXone 1,000 MG in SYRINGE 1 EACH IV SCH (06:45)
[2017-11-27] MEDS: AZITHROMYCIN INJ 500 MG in SODIUM CHLORIDE 0.9% 250 ML IV SCH (06:49)
[2017-11-27] MEDS: INSULIN LISPRO 100 UNIT/ML SUBCUT SCH ×4 (07:53→20:38)
[2017-11-27] MEDS ORDERED: CLOPIDOGREL 75 MG TABLET PO ONE (09:09)
[2017-11-27] MEDS: PANTOPRAZOLE 40 MG VIAL IV SCH (09:44)
[2017-11-27] MEDS: METOCLOPRAMIDE 10 MG/10 ML UDCUP PO SCH ×4 (09:45→20:37)
[2017-11-27] MEDS: DESITIN 4OZ/NYSTATIN 15 GRAM MIXTURE PASTE TOP SCH ×2 (09:45→21:03)
[2017-11-27] MEDS: METOPROLOL TARTRATE 25 MG TABLET PO SCH ×2 (09:45→20:37)
[2017-11-27] MEDS: RIFAXIMIN 550 MG TABLET NG SCH ×2 (09:45→20:37)
[2017-11-27] MEDS: ASPIRIN CHEW 81 MG TABLET PO SCH (09:53)
[2017-11-28 04:47] LABS: Basophils % 0.3 % (0.0-0.8); Eosinophils # 0.2 10*3/uL (0.0-0.87); Hematocrit 33.5 VOL% (35.7-47.0); Hemoglobin 10.9 GM/DL (12.0-16.0); Immature Granulocytes % 0.3 %; Immature Granulocytes Absolute 0.02 #; Lymphocytes # 1.5 10*3/uL (1.4-4.0); Lymphocytes % 23.5 % (21.3-54.2); Mean Corpuscular HGB Conc 32.5 GM/DL (32-36); Mean Corpuscular Hemoglobin 32 PG (27-34); Mean Platelet Volume 10.2 FL (9.6-12.0); Monocytes # 0.5 10*3/uL (0.11-0.8); Monocytes % 7.8 % (1.7-12.7); Neutrophils # 4.2 10*3/uL (1.4-7.4); Neutrophils % 65.1 % (38.7-73.9); Platelet Count 85 T/CUMM (130-400); Red Blood Count 3.42 MC/CUMM (3.8-5.5); Red Cell Distribution Width 21.2 % (9.3-17.3); White Blood Count 6.4 T/CUMM (4-12)
[2017-11-28 05:30] LABS: Hypochromasia 1+; Microcytosis 1+
[2017-11-28 05:31] LABS: Platelet Estimate Decreased
[2017-11-28] MEDS: LACTULOSE 20 GM/30 ML UDCUP PO SCH (06:38)
[2017-11-28] MEDS: cefTRIAXone 1,000 MG in SYRINGE 1 EACH IV SCH (07:05)
[2017-11-28] MEDS: AZITHROMYCIN INJ 500 MG in SODIUM CHLORIDE 0.9% 250 ML IV SCH (07:11)
[2017-11-28] MEDS: RIFAXIMIN 550 MG TABLET NG SCH (08:15)
[2017-11-28] MEDS: INSULIN LISPRO 100 UNIT/ML SUBCUT SCH ×2 (08:15→11:48)
[2017-11-28] MEDS: METOCLOPRAMIDE 10 MG/10 ML UDCUP PO SCH ×2 (08:15→11:48)
[2017-11-28] MEDS: METOPROLOL TARTRATE 25 MG TABLET PO SCH (08:16)
[2017-11-28] MEDS: PANTOPRAZOLE 40 MG VIAL IV SCH (08:16)
[2017-11-28] MEDS: DESITIN 4OZ/NYSTATIN 15 GRAM MIXTURE PASTE TOP SCH (08:16)
[2017-11-28 08:58] VITALS: BP 104/58
== END 2017-11-28 12:20 | disposition home or self-care (01) | DRG 441 ==
LOC: EDUNIT# → EDBD → N.ED 04:02 → N.EDINP 06:32 → SUATTDRO 06:32 → N.CC 12:10 → N.4E 11-25 13:23
PROVIDERS: ADMIT Family Medicine; ATTEND Family Medicine
PROC: EGDWEBL (ICD-10-PCS; 2017-11-26 08:05)

== ENCOUNTER 2018-01-09 08:49 | Inpatient (IN) ==
[2018-01-09] MEDS ORDERED: DEXTROSE 50% 25 GM/50 ML VIAL IV PRN (10:28)
[2018-01-09] MEDS ORDERED: ONDANSETRON 4 MG/2 ML VIAL IV PRN (10:28)
[2018-01-09] MEDS ORDERED: GLUCAGON 1 MG VIAL IM PRN (10:28)
[2018-01-09] MEDS ORDERED: SODIUM CHLORIDE 0.9% 1,000 ML IV SCH (10:30)
[2018-01-09] MEDS ORDERED: RIFAXIMIN 550 MG TABLET NG SCH (11:00)
[2018-01-09] MEDS ORDERED: CARBOXYMETHYLCELLULOSE 1% OPH SOLN BOTH EYES PRN (11:20)
[2018-01-09] MEDS ORDERED: METOPROLOL TARTRATE 25 MG TABLET PO SCH (11:30)
[2018-01-09 13:52] LABS: Albumin 1.5 G/DL (3.4-5.0); Total Protein 7.4 G/DL (6.4-8.3)
[2018-01-09 13:59] LABS: INR 1.3
[2018-01-09] MEDS ORDERED: TISSUE ADHESIVE 1 EACH APPLICATOR TOP ONE (14:16)
[2018-01-09] MEDS: INSULIN LISPRO 100 UNIT/ML SUBCUT SCH ×3 (14:30→20:48)
[2018-01-09] MEDS: cefTRIAXone 1,000 MG in SYRINGE 1 EACH IV SCH (14:52)
[2018-01-09] MEDS: AZITHROMYCIN INJ 500 MG in SODIUM CHLORIDE 0.9% 250 ML IV SCH (14:56)
[2018-01-09] MEDS: LACTULOSE 20 GM/30 ML UDCUP PO SCH ×3 (14:57→20:52)
[2018-01-09] MEDS: ASPIRIN EC 81 MG TABLET PO SCH (14:58)
[2018-01-09 15:15] LABS: Total Protein,Body Fluid 3.1 G/DL
[2018-01-09 15:58] LABS: Eosinophils,Pleural Fluid 2 %; Lymphocytes,Pleural Fluid 80 %; Monocytes,Pleural Fluid 5 %; Neutrophils,Pleural Fluid 13 %
[2018-01-09 16:01] LABS: RBC,Pleural Fluid > 100000 T/CUMM
[2018-01-09] MEDS: METOCLOPRAMIDE 10 MG/10 ML UDCUP PO SCH ×2 (17:05→20:58)
[2018-01-09] MEDS: SPIRONOLACTONE 25 MG TABLET PO SCH ×2 (17:06→20:53)
[2018-01-09] MEDS: CAPTOPRIL 6.25 MG TABLET PO SCH ×2 (17:10→20:55)
[2018-01-09] MEDS: INSULIN GLARGINE 100 UNIT/ML SUBCUT SCH (20:50)
[2018-01-09] MEDS: GABAPENTIN 300 MG CAPSULE PO SCH (20:55)
[2018-01-09] MEDS: CARVEDILOL 12.5 MG TABLET PO SCH (20:55)
[2018-01-09] MEDS: RIFAXIMIN 550 MG TABLET PO SCH (20:56)
[2018-01-10] MEDS: LACTULOSE 20 GM/30 ML UDCUP PO SCH ×4 (01:59→13:18)
[2018-01-10 04:11] LABS: Basophils % 0.2 % (0.0-0.8); Eosinophils # 0.1 10*3/uL (0.0-0.87); Eosinophils % 2.7 % (0.00-10.9); Hematocrit 25.1 VOL% (35.7-47.0); Hemoglobin 8.5 GM/DL (12.0-16.0); Immature Granulocytes % 0.5 %; Immature Granulocytes Absolute 0.02 #; Lymphocytes # 0.8 10*3/uL (1.4-4.0); Lymphocytes % 18.4 % (21.3-54.2); Mean Corpuscular HGB Conc 33.9 GM/DL (32-36); Mean Corpuscular Hemoglobin 34 PG (27-34); Mean Platelet Volume 11.2 FL (9.6-12.0); Monocytes # 0.6 10*3/uL (0.11-0.8); Monocytes % 13.8 % (1.7-12.7); Neutrophils # 2.7 10*3/uL (1.4-7.4); Neutrophils % 64.4 % (38.7-73.9); Red Blood Count 2.51 MC/CUMM (3.8-5.5); Red Cell Distribution Width 18.2 % (9.3-17.3); White Blood Count 4.1 T/CUMM (4-12)
[2018-01-10 04:22] LABS: Platelet Count 55 T/CUMM (130-400)
[2018-01-10 05:01] LABS: Albumin 1.2 G/DL (3.4-5.0); Bilirubin,Total 1.9 MG/DL (0.2-1.0); Calcium 8.3 MG/DL (8.5-10.1); Osmolality,Calculated 282.1 MOS/KG (273-304); Potassium 4.2 MMOL/L (3.5-5.1)
[2018-01-10 05:04] LABS: Hypochromasia 1+; Microcytosis Slight; Ovalocytes Slight; Platelet Estimate Decreased
[2018-01-10] MEDS ORDERED: FUROSEMIDE 40 MG/4 ML VIAL IV SCH (09:00)
[2018-01-10] MEDS: INSULIN LISPRO 100 UNIT/ML SUBCUT SCH ×3 (09:45→17:52)
[2018-01-10] MEDS: METOCLOPRAMIDE 10 MG/10 ML UDCUP PO SCH ×4 (09:45→22:17)
[2018-01-10] MEDS: PANTOPRAZOLE 40 MG TABLET PO SCH (09:47)
[2018-01-10] MEDS: CARVEDILOL 12.5 MG TABLET PO SCH ×2 (09:48→22:12)
[2018-01-10] MEDS: SPIRONOLACTONE 25 MG TABLET PO SCH ×2 (09:56→22:12)
[2018-01-10] MEDS: OMEGA 3 ACID ETHYL ESTERS 1 GM CAPSULE PO SCH (09:56)
[2018-01-10] MEDS: ASPIRIN EC 81 MG TABLET PO SCH (09:57)
[2018-01-10] MEDS: CAPTOPRIL 6.25 MG TABLET PO SCH ×3 (09:57→22:12)
[2018-01-10] MEDS: RIFAXIMIN 550 MG TABLET PO SCH ×2 (09:58→22:14)
[2018-01-10] MEDS: cefTRIAXone 1,000 MG in SYRINGE 1 EACH IV SCH (14:00)
[2018-01-10] MEDS: AZITHROMYCIN INJ 500 MG in SODIUM CHLORIDE 0.9% 250 ML IV SCH (14:23)
[2018-01-10] MEDS: INSULIN GLARGINE 100 UNIT/ML SUBCUT SCH (22:12)
[2018-01-10] MEDS: GABAPENTIN 300 MG CAPSULE PO SCH (22:14)
[2018-01-11] MEDS: INSULIN LISPRO 100 UNIT/ML SUBCUT SCH ×6 (00:37→22:17)
[2018-01-11] MEDS ORDERED: INSULIN GLARGINE 100 UNIT/ML SUBCUT ONE (04:00)
[2018-01-11] MEDS ORDERED: INSULIN LISPRO 100 UNIT/ML SUBCUT ONE (06:13)
[2018-01-11 07:34] LABS: Albumin 1.2 G/DL (3.4-5.0); Bilirubin,Total 1.5 MG/DL (0.2-1.0); Calcium 8.1 MG/DL (8.5-10.1); Osmolality,Calculated 282.2 MOS/KG (273-304); Potassium 4.4 MMOL/L (3.5-5.1); Total Protein 6.3 G/DL (6.4-8.3)
[2018-01-11 09:20] LABS: Basophils % 0.2 % (0.0-0.8); Eosinophils # 0.1 10*3/uL (0.0-0.87); Eosinophils % 2.6 % (0.00-10.9); Hematocrit 25.6 VOL% (35.7-47.0); Hemoglobin 8.5 GM/DL (12.0-16.0); Immature Granulocytes % 0.4 %; Immature Granulocytes Absolute 0.02 #; Lymphocytes # 0.9 10*3/uL (1.4-4.0); Lymphocytes % 15.8 % (21.3-54.2); Mean Corpuscular HGB Conc 33.2 GM/DL (32-36); Mean Corpuscular Hemoglobin 33 PG (27-34); Mean Platelet Volume 11.2 FL (9.6-12.0); Monocytes # 0.8 10*3/uL (0.11-0.8); Monocytes % 15.2 % (1.7-12.7); Neutrophils # 3.5 10*3/uL (1.4-7.4); Neutrophils % 65.8 % (38.7-73.9); Red Blood Count 2.56 MC/CUMM (3.8-5.5); Red Cell Distribution Width 17.9 % (9.3-17.3); White Blood Count 5.4 T/CUMM (4-12)
[2018-01-11 09:21] LABS: Platelet Count 55 T/CUMM (130-400)
[2018-01-11] MEDS: SODIUM CHLORIDE 0.9% 1,000 ML IV SCH (09:32)
[2018-01-11] MEDS: OMEGA 3 ACID ETHYL ESTERS 1 GM CAPSULE PO SCH (09:33)
[2018-01-11] MEDS: CARVEDILOL 12.5 MG TABLET PO SCH ×2 (09:34→22:18)
[2018-01-11] MEDS: ASPIRIN EC 81 MG TABLET PO SCH (09:34)
[2018-01-11] MEDS: RIFAXIMIN 550 MG TABLET PO SCH ×2 (09:34→22:18)
[2018-01-11] MEDS: PANTOPRAZOLE 40 MG TABLET PO SCH (09:34)
[2018-01-11] MEDS: MIDODRINE 5 MG TABLET PO SCH ×3 (09:34→22:18)
[2018-01-11] MEDS: METOCLOPRAMIDE 10 MG/10 ML UDCUP PO SCH ×2 (09:35→11:47)
[2018-01-11 10:47] LABS: Hypochromasia 1+; Platelet Estimate Decreased
[2018-01-11 10:48] LABS: Microcytosis Slight
[2018-01-11] MEDS: OCTREOTIDE 500 MCG in SODIUM CHLORIDE 0.9% 100 ML IV SCH (11:53)
[2018-01-11] MEDS: LACTULOSE 20 GM/30 ML UDCUP PO SCH ×2 (11:53→22:17)
[2018-01-11 11:57] LABS: ABG HCO3 20.3 MMOL/L (20-26); ABG Oxygen Saturation 95.1 % (95-100); ABG PCO2 33.8 MM HG (35-48); ABG PH 7.396 (7.35-7.45); ABG PO2 84.1 MM HG (80-95); ABG TCO2 21.3 MMOL/L (23-27); Allen Test Positive; Pt O2 Delivery Device Room Air
[2018-01-11] MEDS: cefTRIAXone 1,000 MG in SYRINGE 1 EACH IV SCH (13:04)
[2018-01-11] MEDS: AZITHROMYCIN INJ 500 MG in SODIUM CHLORIDE 0.9% 250 ML IV SCH (16:00)
[2018-01-11] MEDS: INSULIN GLARGINE 100 UNIT/ML SUBCUT SCH (22:18)
[2018-01-12] MEDS: SODIUM CHLORIDE 0.9% 1,000 ML IV SCH (05:15)
[2018-01-12 09:48] LABS: Basophils % 0.3 % (0.0-0.8); Eosinophils # 0.3 10*3/uL (0.0-0.87); Eosinophils % 4.3 % (0.00-10.9); Hematocrit 29.7 VOL% (35.7-47.0); Hemoglobin 9.6 GM/DL (12.0-16.0); Immature Granulocytes % 0.7 %; Immature Granulocytes Absolute 0.04 #; Lymphocytes # 1.1 10*3/uL (1.4-4.0); Lymphocytes % 18.2 % (21.3-54.2); Mean Corpuscular HGB Conc 32.3 GM/DL (32-36); Mean Corpuscular Hemoglobin 33 PG (27-34); Mean Corpuscular Volume 102.8 FL (87-102); Mean Platelet Volume 11.1 FL (9.6-12.0); Monocytes # 0.8 10*3/uL (0.11-0.8); Monocytes % 13.3 % (1.7-12.7); Neutrophils # 3.9 10*3/uL (1.4-7.4); Neutrophils % 63.2 % (38.7-73.9); Red Blood Count 2.89 MC/CUMM (3.8-5.5); White Blood Count 6.1 T/CUMM (4-12)
[2018-01-12 09:49] LABS: Platelet Count 60 T/CUMM (130-400)
[2018-01-12] MEDS: CARVEDILOL 12.5 MG TABLET PO SCH (09:50)
[2018-01-12] MEDS: MIDODRINE 5 MG TABLET PO SCH ×3 (09:50→21:41)
[2018-01-12] MEDS: ASPIRIN EC 81 MG TABLET PO SCH (09:50)
[2018-01-12] MEDS: LACTULOSE 20 GM/30 ML UDCUP PO SCH ×2 (09:51→21:41)
[2018-01-12] MEDS: INSULIN LISPRO 100 UNIT/ML SUBCUT SCH ×4 (09:51→21:42)
[2018-01-12] MEDS: OMEGA 3 ACID ETHYL ESTERS 1 GM CAPSULE PO SCH (09:51)
[2018-01-12] MEDS: PANTOPRAZOLE 40 MG TABLET PO SCH (09:51)
[2018-01-12] MEDS: RIFAXIMIN 550 MG TABLET PO SCH ×2 (09:51→21:41)
[2018-01-12 11:15] LABS: Hypochromasia 1+; Macrocytosis 1+
[2018-01-12 11:16] LABS: Platelet Estimate Decreased
[2018-01-12] MEDS: OCTREOTIDE 500 MCG in SODIUM CHLORIDE 0.9% 100 ML IV SCH (12:57)
[2018-01-12] MEDS: CARVEDILOL 3.125 MG TABLET PO SCH (21:42)
[2018-01-12] MEDS: INSULIN GLARGINE 100 UNIT/ML SUBCUT SCH (21:42)
[2018-01-13] MEDS: SODIUM CHLORIDE 0.9% 1,000 ML IV SCH ×2 (01:28→20:46)
[2018-01-13 05:50] LABS: Calcium 7.4 MG/DL (8.5-10.1); Osmolality,Calculated 284.7 MOS/KG (273-304); Potassium 4.8 MMOL/L (3.5-5.1)
[2018-01-13] MEDS: METOCLOPRAMIDE 10 MG/10 ML UDCUP PO SCH ×4 (09:35→20:40)
[2018-01-13] MEDS: INSULIN LISPRO 100 UNIT/ML SUBCUT SCH ×4 (09:35→20:39)
[2018-01-13] MEDS: OMEGA 3 ACID ETHYL ESTERS 1 GM CAPSULE PO SCH (10:44)
[2018-01-13] MEDS: RIFAXIMIN 550 MG TABLET PO SCH ×2 (10:44→20:39)
[2018-01-13] MEDS: MIDODRINE 5 MG TABLET PO SCH ×3 (10:44→20:38)
[2018-01-13] MEDS: ASPIRIN EC 81 MG TABLET PO SCH (10:44)
[2018-01-13] MEDS: PANTOPRAZOLE 40 MG TABLET PO SCH (10:44)
[2018-01-13] MEDS: CARVEDILOL 3.125 MG TABLET PO SCH ×2 (10:44→20:40)
[2018-01-13] MEDS: LACTULOSE 20 GM/30 ML UDCUP PO SCH ×2 (10:45→20:40)
[2018-01-13] MEDS: OCTREOTIDE 500 MCG in SODIUM CHLORIDE 0.9% 100 ML IV SCH (12:50)
[2018-01-13] MEDS: INSULIN GLARGINE 100 UNIT/ML SUBCUT SCH (20:39)
[2018-01-14 07:30] LABS: Calcium 7.3 MG/DL (8.5-10.1); Osmolality,Calculated 289.4 MOS/KG (273-304); Potassium 4.6 MMOL/L (3.5-5.1)
[2018-01-14 07:37] VITALS: BP 92/51
[2018-01-14] MEDS: METOCLOPRAMIDE 10 MG/10 ML UDCUP PO SCH (10:19)
[2018-01-14] MEDS: OMEGA 3 ACID ETHYL ESTERS 1 GM CAPSULE PO SCH (10:20)
[2018-01-14] MEDS: CARVEDILOL 3.125 MG TABLET PO SCH (10:20)
[2018-01-14] MEDS: MIDODRINE 5 MG TABLET PO SCH (10:20)
[2018-01-14] MEDS: ASPIRIN EC 81 MG TABLET PO SCH (10:20)
[2018-01-14] MEDS: RIFAXIMIN 550 MG TABLET PO SCH (10:20)
[2018-01-14] MEDS: LACTULOSE 20 GM/30 ML UDCUP PO SCH (10:20)
[2018-01-14] MEDS: INSULIN LISPRO 100 UNIT/ML SUBCUT SCH (10:31)
[2018-01-14] MEDS: PANTOPRAZOLE 40 MG TABLET PO SCH (10:33)
== END 2018-01-14 12:57 | disposition home or self-care (01) | DRG 291 ==
LOC: EDUNIT# → EDBD → N.EDINP 08:49 → N.ED 08:49 → SUATTDRO 10:28 → N.TELES 11:31 → N.5E 01-12 17:05
PROVIDERS: ADMIT Internal Medicine; ATTEND Internal Medicine
PROC: IRTHORA (2018-01-09 13:55)

== ENCOUNTER 2018-01-24 16:42 | Inpatient (IN) ==
[2018-01-24] MEDS ORDERED: GLUCAGON 1 MG VIAL IM PRN (19:27)
[2018-01-24] MEDS ORDERED: DEXTROSE 50% 25 GM/50 ML VIAL IV PRN (19:27)
[2018-01-24 19:56] LABS: Basophils % 0.2 % (0.0-0.8); Eosinophils # 0.2 10*3/uL (0.0-0.87); Hematocrit 26.5 VOL% (35.7-47.0); Hemoglobin 8.9 GM/DL (12.0-16.0); Immature Granulocytes % 0.2 %; Immature Granulocytes Absolute 0.01 #; Lymphocytes # 1.1 10*3/uL (1.4-4.0); Lymphocytes % 27.1 % (21.3-54.2); Mean Corpuscular HGB Conc 33.6 GM/DL (32-36); Mean Corpuscular Hemoglobin 34 PG (27-34); Mean Platelet Volume 10.6 FL (9.6-12.0); Monocytes # 0.5 10*3/uL (0.11-0.8); Monocytes % 12.7 % (1.7-12.7); Neutrophils # 2.2 10*3/uL (1.4-7.4); Neutrophils % 54.8 % (38.7-73.9); Platelet Count 57 T/CUMM (130-400); Red Blood Count 2.65 MC/CUMM (3.8-5.5); Red Cell Distribution Width 17.1 % (9.3-17.3)
[2018-01-24 20:05] LABS: INR 1.4; PT Patient Result 14.7 SECS; Partial Thromboplastin Time 36.2 SECS (0-40)
[2018-01-24 20:21] LABS: Albumin 1.2 G/DL (3.4-5.0); Bilirubin,Total 1.8 MG/DL (0.2-1.0); Calcium 7.3 MG/DL (8.5-10.1); Osmolality,Calculated 280.4 MOS/KG (273-304); Platelet Estimate Decreased; Potassium 3.6 MMOL/L (3.5-5.1); Total Protein 6.9 G/DL (6.4-8.3)
[2018-01-24] MEDS ORDERED: ONDANSETRON 4 MG/2 ML VIAL IV PRN (20:21)
[2018-01-24] MEDS ORDERED: DOCUSATE SODIUM 100 MG CAPSULE PO PRN (20:21)
[2018-01-25 06:29] LABS: Basophils % 0.6 % (0.0-0.8); Eosinophils # 0.1 10*3/uL (0.0-0.87); Eosinophils % 4.1 % (0.00-10.9); Hematocrit 25.7 VOL% (35.7-47.0); Hemoglobin 8.5 GM/DL (12.0-16.0); Immature Granulocytes % 0.3 %; Immature Granulocytes Absolute 0.01 #; Lymphocytes % 27.9 % (21.3-54.2); Mean Corpuscular HGB Conc 33.1 GM/DL (32-36); Mean Corpuscular Hemoglobin 34 PG (27-34); Mean Corpuscular Volume 101.2 FL (87-102); Mean Platelet Volume 10.1 FL (9.6-12.0); Monocytes # 0.3 10*3/uL (0.11-0.8); Neutrophils % 58.1 % (38.7-73.9); Platelet Count 57 T/CUMM (130-400); Red Blood Count 2.54 MC/CUMM (3.8-5.5); Red Cell Distribution Width 17.1 % (9.3-17.3); White Blood Count 3.4 T/CUMM (4-12)
[2018-01-25 06:53] LABS: Calcium 7.4 MG/DL (8.5-10.1); Osmolality,Calculated 285.3 MOS/KG (273-304); Potassium 3.5 MMOL/L (3.5-5.1)
[2018-01-25 08:06] LABS: Anisocytosis Slight
[2018-01-25 08:07] LABS: Microcytosis 1+; Platelet Estimate Decreased; Polychromasia Slight
[2018-01-25] MEDS ORDERED: POLYVINYL ALCOHOL 1.4% OPH SOLN 15 ML BOTTLE BOTH EYES PRN (08:59)
[2018-01-25] MEDS ORDERED: FAMOTIDINE 20 MG TABLET PO SCH (09:00)
[2018-01-25] MEDS ORDERED: LACTULOSE 20 GM/30 ML UDCUP PO SCH (09:00)
[2018-01-25] MEDS ORDERED: ASPIRIN EC 81 MG TABLET PO SCH (09:00)
[2018-01-25] MEDS: MIDODRINE 5 MG TABLET PO SCH ×3 (11:48→21:06)
[2018-01-25 11:49] LABS: Apearance,Urine CLEAR (Clear); Bilirubin,Urine Negative (Negative); Blood, Urine Small mg/dL (Negative); Glucose,Urine (UA) 50 mg/dL (Negative); Hyaline Casts,Urine 11 /LPF (0-3); Ketones,Urine Negative (Negative); Mucus,Urine Occasional /LPF (Occasional); Nitrite,Urine Negative (Negative); Protein,Urine 30 MG/DL; RBC,Urine 8 /HPF (0-4); Squamous Epithelial Cell,Urine Occasional /HPF (0-10); Urine Color Amber (Yellow); Urine Specific Gravity 1.016 (1.001-1.035); Urine Urobilinogen < 2.0 EU/DL (0.2-1.0); WBC,Urine 3 /HPF (0-6)
[2018-01-25] MEDS: RIFAXIMIN 550 MG TABLET NG SCH ×2 (12:14→21:06)
[2018-01-25] MEDS: MOISTURIZING CREAM (EUCERIN) 113 GM JAR TOP SCH ×2 (12:14→21:07)
[2018-01-25] MEDS: OMEGA 3 ACID ETHYL ESTERS 1 GM CAPSULE PO SCH (12:14)
[2018-01-25] MEDS: METOCLOPRAMIDE 10 MG/10 ML UDCUP PO SCH ×3 (12:14→21:05)
[2018-01-25] MEDS: PHYTONADIONE 10 MG/1 ML AMP SUBCUT SCH (12:15)
[2018-01-25] MEDS: LACTULOSE 20 GM/30 ML UDCUP PO SCH ×2 (12:16→21:05)
[2018-01-25] MEDS ORDERED: PANTOPRAZOLE 40 MG TABLET PO SCH (16:30)
[2018-01-25] MEDS: FUROSEMIDE 40 MG/4 ML VIAL IV SCH (16:53)
[2018-01-25] MEDS: PROPRANOLOL 10 MG TABLET PO SCH ×2 (16:53→21:07)
[2018-01-25] MEDS ORDERED: diphenhydrAMINE CAP 25 MG CAPSULE PO ONE (17:30)
[2018-01-25] MEDS: GABAPENTIN 300 MG CAPSULE PO SCH (21:06)
[2018-01-25] MEDS: ATORVASTATIN 40 MG TABLET PO SCH (21:06)
[2018-01-25] MEDS: PANTOPRAZOLE 40 MG TABLET PO SCH (21:07)
[2018-01-25] MEDS: INSULIN GLARGINE 100 UNIT/ML SUBCUT SCH (21:16)
[2018-01-26 03:20] LABS: Basophils % 0.4 % (0.0-0.8); Eosinophils # 0.3 10*3/uL (0.0-0.87); Eosinophils % 5.8 % (0.00-10.9); Hematocrit 22.7 VOL% (35.7-47.0); Hemoglobin 7.4 GM/DL (12.0-16.0); Immature Granulocytes % 0.2 %; Immature Granulocytes Absolute 0.01 #; Lymphocytes # 1.3 10*3/uL (1.4-4.0); Mean Corpuscular HGB Conc 32.6 GM/DL (32-36); Mean Corpuscular Hemoglobin 34 PG (27-34); Mean Corpuscular Volume 103.2 FL (87-102); Mean Platelet Volume 10.8 FL (9.6-12.0); Monocytes # 0.6 10*3/uL (0.11-0.8); Monocytes % 12.6 % (1.7-12.7); Neutrophils # 2.5 10*3/uL (1.4-7.4); Red Cell Distribution Width 17.2 % (9.3-17.3); White Blood Count 4.7 T/CUMM (4-12)
[2018-01-26 03:22] LABS: Platelet Count 59 T/CUMM (130-400)
[2018-01-26 03:32] LABS: Albumin 1.1 G/DL (3.4-5.0); Bilirubin,Total 1.6 MG/DL (0.2-1.0); Calcium 7.4 MG/DL (8.5-10.1); Osmolality,Calculated 287.4 MOS/KG (273-304); Potassium 3.5 MMOL/L (3.5-5.1); Total Protein 6.1 G/DL (6.4-8.3)
[2018-01-26 03:35] LABS: INR 1.5; PT Patient Result 15.5 SECS; Partial Thromboplastin Time 39.6 SECS (0-40)
[2018-01-26 04:48] LABS: Hypochromasia 1+; Platelet Estimate Decreased
[2018-01-26 04:49] LABS: Microcytosis Slight
[2018-01-26] MEDS ORDERED: SODIUM CHLORIDE 0.9% 1,000 ML IV PRN ×4 (06:27→09:13)
[2018-01-26] MEDS: METOCLOPRAMIDE 10 MG/10 ML UDCUP PO SCH ×4 (09:17→21:40)
[2018-01-26] MEDS: LACTULOSE 20 GM/30 ML UDCUP PO SCH ×2 (09:21→21:31)
[2018-01-26] MEDS: MOISTURIZING CREAM (EUCERIN) 113 GM JAR TOP SCH ×2 (09:21→21:32)
[2018-01-26] MEDS: PROPRANOLOL 10 MG TABLET PO SCH ×3 (09:21→21:30)
[2018-01-26] MEDS: OMEGA 3 ACID ETHYL ESTERS 1 GM CAPSULE PO SCH (09:21)
[2018-01-26] MEDS: FUROSEMIDE 40 MG/4 ML VIAL IV SCH ×2 (09:21→16:40)
[2018-01-26] MEDS: MIDODRINE 5 MG TABLET PO SCH ×3 (09:22→21:29)
[2018-01-26] MEDS: PANTOPRAZOLE 40 MG TABLET PO SCH ×2 (09:22→21:31)
[2018-01-26] MEDS: RIFAXIMIN 550 MG TABLET NG SCH ×2 (09:22→21:30)
[2018-01-26 10:12] LABS: Lymphocytes,Pleural Fluid 87 %; Monocytes,Pleural Fluid 10 %; Neutrophils,Pleural Fluid 3 %
[2018-01-26 10:15] LABS: RBC,Pleural Fluid > 100000 T/CUMM
[2018-01-26] MEDS: PHYTONADIONE 10 MG/1 ML AMP SUBCUT SCH (10:26)
[2018-01-26 11:16] LABS: % Iron Saturation 73.2 % (18-50)
[2018-01-26 11:26] LABS: Folate > 24.0 NG/ML (5.4-24.0); Vitamin B12 1366 PG/ML (211-911)
[2018-01-26] MEDS ORDERED: DEXTROSE 50% 25 GM/50 ML VIAL IV PRN (15:45)
[2018-01-26] MEDS ORDERED: GLUCAGON 1 MG VIAL IM PRN (15:45)
[2018-01-26] MEDS: GABAPENTIN 300 MG CAPSULE PO SCH (21:30)
[2018-01-26] MEDS: INSULIN GLARGINE 100 UNIT/ML SUBCUT SCH (21:32)
[2018-01-26] MEDS: ATORVASTATIN 40 MG TABLET PO SCH (21:40)
[2018-01-27] MEDS: IBUPROFEN 800 MG TABLET PO PRN ×3 (00:41→20:40)
[2018-01-27 04:25] LABS: Basophils % 0.3 % (0.0-0.8); Eosinophils # 0.1 10*3/uL (0.0-0.87); Eosinophils % 2.9 % (0.00-10.9); Hemoglobin 8.3 GM/DL (12.0-16.0); Immature Granulocytes % 0.3 %; Immature Granulocytes Absolute 0.01 #; Lymphocytes # 0.9 10*3/uL (1.4-4.0); Lymphocytes % 27.4 % (21.3-54.2); Mean Corpuscular HGB Conc 33.2 GM/DL (32-36); Mean Corpuscular Hemoglobin 33 PG (27-34); Mean Corpuscular Volume 98.8 FL (87-102); Mean Platelet Volume 10.6 FL (9.6-12.0); Monocytes # 0.4 10*3/uL (0.11-0.8); Monocytes % 10.5 % (1.7-12.7); Neutrophils % 58.6 % (38.7-73.9); Red Blood Count 2.53 MC/CUMM (3.8-5.5); Red Cell Distribution Width 18.7 % (9.3-17.3); White Blood Count 3.4 T/CUMM (4-12)
[2018-01-27 04:46] LABS: Platelet Count 44 T/CUMM (130-400)
[2018-01-27 04:55] LABS: Hypochromasia 1+; Platelet Estimate Decreased
[2018-01-27 04:56] LABS: Microcytosis Slight
[2018-01-27 04:58] LABS: Albumin 1.3 G/DL (3.4-5.0); Bilirubin,Total 1.7 MG/DL (0.2-1.0); Calcium 7.2 MG/DL (8.5-10.1); Osmolality,Calculated 288.3 MOS/KG (273-304); Potassium 3.3 MMOL/L (3.5-5.1)
[2018-01-27 08:03] LABS: INR 1.3; PT Patient Result 13.4 SECS; Partial Thromboplastin Time 32.6 SECS (0-40)
[2018-01-27] MEDS: FUROSEMIDE 40 MG/4 ML VIAL IV SCH ×2 (08:45→16:11)
[2018-01-27] MEDS: MOISTURIZING CREAM (EUCERIN) 113 GM JAR TOP SCH ×2 (08:56→20:41)
[2018-01-27] MEDS: METOCLOPRAMIDE 10 MG/10 ML UDCUP PO SCH ×4 (08:56→20:44)
[2018-01-27] MEDS: LACTULOSE 20 GM/30 ML UDCUP PO SCH ×2 (08:56→20:39)
[2018-01-27] MEDS: MIDODRINE 5 MG TABLET PO SCH ×3 (08:57→20:40)
[2018-01-27] MEDS: OMEGA 3 ACID ETHYL ESTERS 1 GM CAPSULE PO SCH (08:57)
[2018-01-27] MEDS: PANTOPRAZOLE 40 MG TABLET PO SCH ×2 (08:57→20:41)
[2018-01-27] MEDS: PROPRANOLOL 10 MG TABLET PO SCH ×3 (08:57→20:41)
[2018-01-27] MEDS: RIFAXIMIN 550 MG TABLET NG SCH ×2 (08:58→20:40)
[2018-01-27] MEDS ORDERED: MORPHINE 4 MG/1 ML VIAL IV ONE (09:00)
[2018-01-27] MEDS: PHYTONADIONE 10 MG/1 ML AMP SUBCUT SCH (10:43)
[2018-01-27] MEDS ORDERED: DEXTROSE 50% 25 GM/50 ML VIAL IV PRN (11:20)
[2018-01-27] MEDS ORDERED: GLUCAGON 1 MG VIAL IM PRN (11:20)
[2018-01-27] MEDS: POTASSIUM CHLORIDE RIDER 10 MEQ in PREMIX 1 EACH IV PRN ×2 (11:46→13:08)
[2018-01-27] MEDS: INSULIN GLARGINE 100 UNIT/ML SUBCUT SCH (20:39)
[2018-01-27] MEDS: GABAPENTIN 300 MG CAPSULE PO SCH (20:40)
[2018-01-27] MEDS: ATORVASTATIN 40 MG TABLET PO SCH (20:41)
[2018-01-27] MEDS: NYSTATIN CREAM 15 GM TUBE TOP SCH (20:42)
[2018-01-27 23:02] LABS: Hematocrit 28.9 VOL% (35.7-47.0); Hemoglobin 9.5 GM/DL (12.0-16.0)
[2018-01-28 06:02] LABS: Basophils % 0.3 % (0.0-0.8); Eosinophils # 0.2 10*3/uL (0.0-0.87); Eosinophils % 6.3 % (0.00-10.9); Hematocrit 28.6 VOL% (35.7-47.0); Hemoglobin 9.6 GM/DL (12.0-16.0); Immature Granulocytes % 0.3 %; Immature Granulocytes Absolute 0.01 #; Lymphocytes # 1.1 10*3/uL (1.4-4.0); Lymphocytes % 29.8 % (21.3-54.2); Mean Corpuscular HGB Conc 33.6 GM/DL (32-36); Mean Corpuscular Hemoglobin 32 PG (27-34); Mean Corpuscular Volume 96.3 FL (87-102); Mean Platelet Volume 11.4 FL (9.6-12.0); Monocytes # 0.4 10*3/uL (0.11-0.8); Monocytes % 9.8 % (1.7-12.7); Neutrophils % 53.5 % (38.7-73.9); Platelet Count 46 T/CUMM (130-400); Red Blood Count 2.97 MC/CUMM (3.8-5.5); Red Cell Distribution Width 19.1 % (9.3-17.3); White Blood Count 3.7 T/CUMM (4-12)
[2018-01-28 06:28] LABS: Calcium 7.1 MG/DL (8.5-10.1); Osmolality,Calculated 287.1 MOS/KG (273-304); Potassium 3.4 MMOL/L (3.5-5.1)
[2018-01-28 06:29] LABS: Hypochromasia 1+; Platelet Estimate Decreased
[2018-01-28 06:30] LABS: Microcytosis Slight
[2018-01-28] MEDS ORDERED: MAGNESIUM SULF RIDER 4 GM in PREMIX 1 EACH IV PRN (08:42)
[2018-01-28] MEDS: MIDODRINE 5 MG TABLET PO SCH ×3 (09:04→21:13)
[2018-01-28] MEDS: RIFAXIMIN 550 MG TABLET NG SCH ×2 (09:04→21:14)
[2018-01-28] MEDS: PROPRANOLOL 10 MG TABLET PO SCH ×2 (09:04→21:14)
[2018-01-28] MEDS: PANTOPRAZOLE 40 MG TABLET PO SCH ×2 (09:05→21:14)
[2018-01-28] MEDS: OMEGA 3 ACID ETHYL ESTERS 1 GM CAPSULE PO SCH (09:05)
[2018-01-28] MEDS: METOCLOPRAMIDE 10 MG/10 ML UDCUP PO SCH ×4 (09:05→21:12)
[2018-01-28] MEDS: LACTULOSE 20 GM/30 ML UDCUP PO SCH ×2 (09:09→21:12)
[2018-01-28] MEDS: PHYTONADIONE 10 MG/1 ML AMP SUBCUT SCH (09:09)
[2018-01-28] MEDS: ZINC OXIDE 16% PASTE 57 GM TUBE TOP PRN ×2 (09:10→21:15)
[2018-01-28] MEDS: NYSTATIN CREAM 15 GM TUBE TOP SCH ×2 (09:10→21:21)
[2018-01-28] MEDS: MOISTURIZING CREAM (EUCERIN) 113 GM JAR TOP SCH ×2 (10:08→21:21)
[2018-01-28] MEDS: FUROSEMIDE 40 MG/4 ML VIAL IV SCH (10:49)
[2018-01-28] MEDS: POTASSIUM CHLORIDE 20 MEQ TABLET PO PRN ×3 (12:00→16:14)
[2018-01-28] MEDS: MAGNESIUM SULF RIDER 2 GM in PREMIX 1 EACH IV PRN (12:03)
[2018-01-28] MEDS: SPIRONOLACTONE 50 MG TABLET PO SCH (15:28)
[2018-01-28] MEDS: FUROSEMIDE 40 MG TABLET PO SCH (15:28)
[2018-01-28] MEDS: IBUPROFEN 800 MG TABLET PO PRN (19:49)
[2018-01-28] MEDS: ATORVASTATIN 40 MG TABLET PO SCH (21:13)
[2018-01-28] MEDS: GABAPENTIN 300 MG CAPSULE PO SCH (21:14)
[2018-01-28] MEDS: INSULIN GLARGINE 100 UNIT/ML SUBCUT SCH (21:16)
[2018-01-29 05:46] LABS: Basophils % 0.3 % (0.0-0.8); Eosinophils # 0.2 10*3/uL (0.0-0.87); Hematocrit 28.5 VOL% (35.7-47.0); Hemoglobin 9.6 GM/DL (12.0-16.0); Lymphocytes # 0.8 10*3/uL (1.4-4.0); Lymphocytes % 24.9 % (21.3-54.2); Mean Corpuscular HGB Conc 33.7 GM/DL (32-36); Mean Corpuscular Hemoglobin 32 PG (27-34); Mean Corpuscular Volume 95.6 FL (87-102); Monocytes # 0.3 10*3/uL (0.11-0.8); Monocytes % 10.1 % (1.7-12.7); Neutrophils % 59.7 % (38.7-73.9); Platelet Count 45 T/CUMM (130-400); Red Blood Count 2.98 MC/CUMM (3.8-5.5); Red Cell Distribution Width 18.6 % (9.3-17.3); White Blood Count 3.4 T/CUMM (4-12)
[2018-01-29 05:58] LABS: INR 1.4; PT Patient Result 14.3 SECS
[2018-01-29 06:06] LABS: Hypochromasia 1+; Ovalocytes Slight; Platelet Estimate Decreased
[2018-01-29 06:07] LABS: Microcytosis Slight
[2018-01-29 06:17] LABS: Albumin 1.3 G/DL (3.4-5.0); Bilirubin,Total 2.4 MG/DL (0.2-1.0); Calcium 7.1 MG/DL (8.5-10.1); Osmolality,Calculated 286.4 MOS/KG (273-304); Potassium 3.9 MMOL/L (3.5-5.1)
[2018-01-29] MEDS: MIDODRINE 5 MG TABLET PO SCH (09:44)
[2018-01-29] MEDS: OMEGA 3 ACID ETHYL ESTERS 1 GM CAPSULE PO SCH (09:44)
[2018-01-29] MEDS: METOCLOPRAMIDE 10 MG/10 ML UDCUP PO SCH ×2 (09:44→11:16)
[2018-01-29] MEDS: SPIRONOLACTONE 50 MG TABLET PO SCH (09:45)
[2018-01-29] MEDS: PROPRANOLOL 10 MG TABLET PO SCH (09:45)
[2018-01-29] MEDS: RIFAXIMIN 550 MG TABLET NG SCH (09:45)
[2018-01-29] MEDS: PANTOPRAZOLE 40 MG TABLET PO SCH (09:46)
[2018-01-29] MEDS: LACTULOSE 20 GM/30 ML UDCUP PO SCH (09:46)
[2018-01-29] MEDS: FUROSEMIDE 40 MG TABLET PO SCH (09:46)
[2018-01-29] MEDS: MOISTURIZING CREAM (EUCERIN) 113 GM JAR TOP SCH (09:47)
[2018-01-29] MEDS: ZINC OXIDE 16% PASTE 57 GM TUBE TOP PRN (09:47)
[2018-01-29] MEDS: NYSTATIN CREAM 15 GM TUBE TOP SCH (09:47)
[2018-01-29] MEDS: MAGNESIUM SULF RIDER 2 GM in PREMIX 1 EACH IV PRN (10:38)
[2018-01-29 12:29] VITALS: BP 108/62
[2018-01-29] MEDS ORDERED: MAGNESIUM OXIDE 400 MG TABLET PO SCH (12:30)
== END 2018-01-29 14:22 | disposition home or self-care (01) | DRG 186 ==
LOC: SUATTDRO 18:36 → N.2E 18:36
PROVIDERS: ADMIT Internal Medicine; ATTEND Internal Medicine

== ENCOUNTER 2018-02-07 23:14 | Inpatient (IN) ==
[2018-02-08] MEDS ORDERED: GLUCAGON 1 MG VIAL IM PRN (02:01)
[2018-02-08] MEDS ORDERED: DEXTROSE 50% 25 GM/50 ML VIAL IV PRN (02:01)
[2018-02-08 03:53] LABS: Basophils % 0.3 % (0.0-0.8); Eosinophils # 0.1 10*3/uL (0.0-0.87); Eosinophils % 2.6 % (0.00-10.9); Hematocrit 26.5 VOL% (35.7-47.0); Hemoglobin 9.4 GM/DL (12.0-16.0); Immature Granulocytes % 0.3 %; Immature Granulocytes Absolute 0.01 #; Lymphocytes # 0.7 10*3/uL (1.4-4.0); Lymphocytes % 18.8 % (21.3-54.2); Mean Corpuscular HGB Conc 35.5 GM/DL (32-36); Mean Corpuscular Hemoglobin 32 PG (27-34); Mean Corpuscular Volume 88.9 FL (87-102); Mean Platelet Volume 11.5 FL (9.6-12.0); Monocytes # 0.5 10*3/uL (0.11-0.8); Monocytes % 13.3 % (1.7-12.7); Neutrophils # 2.2 10*3/uL (1.4-7.4); Neutrophils % 64.7 % (38.7-73.9); Platelet Count 61 T/CUMM (130-400); Red Blood Count 2.98 MC/CUMM (3.8-5.5); Red Cell Distribution Width 16.4 % (9.3-17.3); White Blood Count 3.5 T/CUMM (4-12)
[2018-02-08 04:06] LABS: Albumin 1.4 G/DL (3.4-5.0); Bilirubin,Total 3.3 MG/DL (0.2-1.0); Calcium 8.4 MG/DL (8.5-10.1); Osmolality,Calculated 275.9 MOS/KG (273-304); Potassium 3.7 MMOL/L (3.5-5.1); Total Protein 7.6 G/DL (6.4-8.3)
[2018-02-08 05:08] LABS: Albumin 1.4 G/DL (3.4-5.0); Bilirubin,Direct 2.3 MG/DL (0.0-0.20); Bilirubin,Indirect 1.5 MG/DL (0.0-1.0); Bilirubin,Total 3.8 MG/DL (0.2-1.0); Total Protein 7.7 G/DL (6.4-8.3)
[2018-02-08] MEDS: PANTOPRAZOLE 40 MG TABLET PO SCH ×2 (10:17→17:08)
[2018-02-08] MEDS: INSULIN LISPRO 100 UNIT/ML SUBCUT SCH ×4 (10:17→20:37)
[2018-02-08] MEDS ORDERED: ZINC OXIDE 16% PASTE 57 GM TUBE TOP PRN (11:10)
[2018-02-08] MEDS ORDERED: INSULIN DETEMIR 10 UNIT SUBCUT PRN (11:10)
[2018-02-08] MEDS ORDERED: POLYVINYL ALCOHOL 1.4% OPH SOLN 15 ML BOTTLE BOTH EYES PRN (11:10)
[2018-02-08] MEDS: SODIUM CHLORIDE 0.9% 1,000 ML IV SCH (12:00)
[2018-02-08] MEDS: RIFAXIMIN 550 MG TABLET PO SCH ×2 (13:45→20:37)
[2018-02-08] MEDS: METOCLOPRAMIDE 10 MG/10 ML UDCUP PO SCH ×3 (13:45→20:37)
[2018-02-08] MEDS: INSULIN GLARGINE 100 UNIT/ML SUBCUT SCH (17:08)
[2018-02-08] MEDS: MIDODRINE 5 MG TABLET PO SCH ×2 (17:08→20:37)
[2018-02-08] MEDS: LACTULOSE 20 GM/30 ML UDCUP PO SCH (20:36)
[2018-02-08] MEDS: GABAPENTIN 300 MG CAPSULE PO SCH (20:36)
[2018-02-08] MEDS: MOISTURIZING CREAM (EUCERIN) 113 GM JAR TOP SCH (20:39)
[2018-02-09] MEDS: SODIUM CHLORIDE 0.9% 1,000 ML IV SCH ×2 (02:21→15:18)
[2018-02-09 04:15] LABS: Basophils % 0.2 % (0.0-0.8); Eosinophils # 0.1 10*3/uL (0.0-0.87); Eosinophils % 2.7 % (0.00-10.9); Hematocrit 24.3 VOL% (35.7-47.0); Hemoglobin 8.6 GM/DL (12.0-16.0); Immature Granulocytes % 0.4 %; Immature Granulocytes Absolute 0.02 #; Lymphocytes # 1.4 10*3/uL (1.4-4.0); Lymphocytes % 28.7 % (21.3-54.2); Mean Corpuscular HGB Conc 35.4 GM/DL (32-36); Mean Corpuscular Hemoglobin 31 PG (27-34); Mean Corpuscular Volume 88.4 FL (87-102); Mean Platelet Volume 10.9 FL (9.6-12.0); Monocytes # 0.6 10*3/uL (0.11-0.8); Monocytes % 12.3 % (1.7-12.7); Neutrophils # 2.7 10*3/uL (1.4-7.4); Neutrophils % 55.7 % (38.7-73.9); Red Blood Count 2.75 MC/CUMM (3.8-5.5); Red Cell Distribution Width 16.5 % (9.3-17.3); White Blood Count 4.9 T/CUMM (4-12)
[2018-02-09 04:22] LABS: Platelet Count 63 T/CUMM (130-400)
[2018-02-09 04:52] LABS: Hypochromasia 1+; Ovalocytes Slight; Platelet Estimate Decreased
[2018-02-09 05:02] LABS: Albumin 1.2 G/DL (3.4-5.0); Bilirubin,Total 3.6 MG/DL (0.2-1.0); Calcium 7.7 MG/DL (8.5-10.1); Total Protein 6.8 G/DL (6.4-8.3)
[2018-02-09] MEDS: METOCLOPRAMIDE 10 MG/10 ML UDCUP PO SCH ×4 (08:00→21:55)
[2018-02-09] MEDS: OMEGA 3 ACID ETHYL ESTERS 1 GM CAPSULE PO SCH (12:09)
[2018-02-09] MEDS: MIDODRINE 5 MG TABLET PO SCH ×3 (12:09→21:55)
[2018-02-09] MEDS: PANTOPRAZOLE 40 MG TABLET PO SCH ×2 (12:09→17:00)
[2018-02-09] MEDS: LACTULOSE 20 GM/30 ML UDCUP PO SCH ×2 (12:09→21:55)
[2018-02-09] MEDS: RIFAXIMIN 550 MG TABLET PO SCH ×2 (12:09→21:56)
[2018-02-09] MEDS: INSULIN LISPRO 100 UNIT/ML SUBCUT SCH ×4 (12:10→21:56)
[2018-02-09] MEDS: MOISTURIZING CREAM (EUCERIN) 113 GM JAR TOP SCH ×2 (12:10→21:59)
[2018-02-09] MEDS: INSULIN GLARGINE 100 UNIT/ML SUBCUT SCH (12:10)
[2018-02-09] MEDS ORDERED: ACETAMINOPHEN 325 MG TABLET PO PRN (14:10)
[2018-02-09] MEDS ORDERED: SODIUM CHLORIDE 0.9% 1,000 ML IV PRN (14:10)
[2018-02-09] MEDS ORDERED: FUROSEMIDE 20 MG/2 ML VIAL IV PRN (14:10)
[2018-02-09] MEDS: HYDROmorphone 2 MG/1 ML VIAL IV PRN (20:38)
[2018-02-09] MEDS: cephALEXin 500 MG CAPSULE PO SCH (21:56)
[2018-02-09] MEDS: GABAPENTIN 300 MG CAPSULE PO SCH (21:56)
[2018-02-10] MEDS: ONDANSETRON 4 MG/2 ML VIAL IV PRN (03:08)
[2018-02-10] MEDS: SODIUM CHLORIDE 0.9% 1,000 ML IV SCH ×2 (03:32→17:47)
[2018-02-10 05:33] LABS: Basophils % 0.4 % (0.0-0.8); Eosinophils # 0.1 10*3/uL (0.0-0.87); Eosinophils % 1.8 % (0.00-10.9); Hematocrit 38.6 VOL% (35.7-47.0); Immature Granulocytes % 0.4 %; Immature Granulocytes Absolute 0.03 #; Lymphocytes # 1.9 10*3/uL (1.4-4.0); Lymphocytes % 27.2 % (21.3-54.2); Mean Corpuscular HGB Conc 34.5 GM/DL (32-36); Mean Corpuscular Hemoglobin 31 PG (27-34); Mean Corpuscular Volume 90.6 FL (87-102); Mean Platelet Volume 10.8 FL (9.6-12.0); Monocytes % 13.9 % (1.7-12.7); Neutrophils # 3.9 10*3/uL (1.4-7.4); Neutrophils % 56.3 % (38.7-73.9); Platelet Count 74 T/CUMM (130-400); Red Cell Distribution Width 16.1 % (9.3-17.3)
[2018-02-10 05:36] LABS: Red Blood Count 4.26 MC/CUMM (3.8-5.5); White Blood Count 6.8 T/CUMM (4-12)
[2018-02-10 05:37] LABS: Hemoglobin 13.3 GM/DL (12.0-16.0)
[2018-02-10 05:46] LABS: Albumin 1.5 G/DL (3.4-5.0); Bilirubin,Direct 2.46 MG/DL (0.0-0.20); Bilirubin,Indirect 1.6 MG/DL (0.0-1.0); Bilirubin,Total 4.1 MG/DL (0.2-1.0); Total Protein 8.1 G/DL (6.4-8.3)
[2018-02-10 05:52] LABS: Albumin 1.4 G/DL (3.4-5.0); Bilirubin,Total 4.3 MG/DL (0.2-1.0); Potassium 4.5 MMOL/L (3.5-5.1); Total Protein 7.9 G/DL (6.4-8.3)
[2018-02-10] MEDS: cephALEXin 500 MG CAPSULE PO SCH (06:09)
[2018-02-10] MEDS ORDERED: ALBUMIN 25% 50 GM in PREMIX 1 EACH IV ONE (06:56)
[2018-02-10] MEDS: MIDODRINE 5 MG TABLET PO SCH ×3 (08:57→21:12)
[2018-02-10] MEDS: INSULIN LISPRO 100 UNIT/ML SUBCUT SCH ×4 (08:58→21:12)
[2018-02-10] MEDS: RIFAXIMIN 550 MG TABLET PO SCH ×2 (08:58→21:12)
[2018-02-10] MEDS: METOCLOPRAMIDE 10 MG/10 ML UDCUP PO SCH ×4 (08:58→21:17)
[2018-02-10] MEDS: OMEGA 3 ACID ETHYL ESTERS 1 GM CAPSULE PO SCH (08:58)
[2018-02-10] MEDS: LACTULOSE 20 GM/30 ML UDCUP PO SCH ×2 (08:58→21:13)
[2018-02-10] MEDS: PANTOPRAZOLE 40 MG TABLET PO SCH ×2 (08:58→16:38)
[2018-02-10] MEDS: INSULIN GLARGINE 100 UNIT/ML SUBCUT SCH (08:58)
[2018-02-10] MEDS: MOISTURIZING CREAM (EUCERIN) 113 GM JAR TOP SCH ×2 (09:02→21:13)
[2018-02-10] MEDS ORDERED: CEFTAROLINE 600 MG in SODIUM CHLORIDE 0.9% 100 ML IV SCH (13:30)
[2018-02-10] MEDS: CEFTAROLINE 400 MG in SODIUM CHLORIDE 0.9% 100 ML IV SCH (15:22)
[2018-02-10] MEDS: GABAPENTIN 300 MG CAPSULE PO SCH (21:12)
[2018-02-10] MEDS: HYDROmorphone 2 MG/1 ML VIAL IV PRN (21:13)
[2018-02-11] MEDS: CEFTAROLINE 400 MG in SODIUM CHLORIDE 0.9% 100 ML IV SCH (02:01)
[2018-02-11 04:59] LABS: Albumin 1.8 G/DL (3.4-5.0); Bilirubin,Total 3.8 MG/DL (0.2-1.0); Calcium 7.9 MG/DL (8.5-10.1); Total Protein 6.9 G/DL (6.4-8.3)
[2018-02-11 05:00] LABS: Albumin 1.7 G/DL (3.4-5.0); Bilirubin,Direct 2.08 MG/DL (0.0-0.20); Bilirubin,Indirect 2.1 MG/DL (0.0-1.0); Bilirubin,Total 4.2 MG/DL (0.2-1.0)
[2018-02-11] MEDS ORDERED: LIDOCAINE 2% 5 ML VIAL MISC INJ ONE (07:00)
[2018-02-11] MEDS ORDERED: DOXYCYCLINE HYCLATE 100 MG CAPSULE PO ONE (07:00)
[2018-02-11] MEDS ORDERED: MEPERIDINE 25 MG/1 ML VIAL IV ONE (07:00)
[2018-02-11] MEDS: SODIUM CHLORIDE 0.9% 1,000 ML IV SCH (08:49)
[2018-02-11] MEDS: INSULIN GLARGINE 100 UNIT/ML SUBCUT SCH (09:04)
[2018-02-11] MEDS: LACTULOSE 20 GM/30 ML UDCUP PO SCH ×2 (09:05→21:15)
[2018-02-11] MEDS: MIDODRINE 5 MG TABLET PO SCH ×3 (09:05→21:14)
[2018-02-11] MEDS: METOCLOPRAMIDE 10 MG/10 ML UDCUP PO SCH ×4 (09:05→21:15)
[2018-02-11] MEDS: PANTOPRAZOLE 40 MG TABLET PO SCH ×2 (09:06→17:24)
[2018-02-11] MEDS: MOISTURIZING CREAM (EUCERIN) 113 GM JAR TOP SCH ×2 (09:06→21:15)
[2018-02-11] MEDS: INSULIN LISPRO 100 UNIT/ML SUBCUT SCH ×4 (09:06→21:15)
[2018-02-11] MEDS: RIFAXIMIN 550 MG TABLET PO SCH ×2 (09:06→21:15)
[2018-02-11] MEDS: OMEGA 3 ACID ETHYL ESTERS 1 GM CAPSULE PO SCH (09:06)
[2018-02-11] MEDS: ACETAMINOPHEN 500 MG TABLET PO PRN (14:34)
[2018-02-11] MEDS: AMPICILLIN 500 MG CAPSULE PO SCH ×3 (14:35→21:15)
[2018-02-11] MEDS: HYDROmorphone 2 MG/1 ML VIAL IV PRN (17:38)
[2018-02-11] MEDS ORDERED: ACETAMINOPHEN 500 MG TABLET PO SCH (18:00)
[2018-02-11] MEDS: GABAPENTIN 300 MG CAPSULE PO SCH (21:14)
[2018-02-12 05:59] LABS: Albumin 1.5 G/DL (3.4-5.0); Bilirubin,Total 3.2 MG/DL (0.2-1.0); Calcium 7.7 MG/DL (8.5-10.1); Potassium 3.9 MMOL/L (3.5-5.1); Total Protein 6.4 G/DL (6.4-8.3)
[2018-02-12 06:07] LABS: Albumin 1.5 G/DL (3.4-5.0); Bilirubin,Direct 2.11 MG/DL (0.0-0.20); Bilirubin,Indirect 1.1 MG/DL (0.0-1.0); Bilirubin,Total 3.2 MG/DL (0.2-1.0); Total Protein 6.4 G/DL (6.4-8.3)
[2018-02-12] MEDS: LACTULOSE 20 GM/30 ML UDCUP PO SCH ×2 (09:05→20:26)
[2018-02-12] MEDS: METOCLOPRAMIDE 10 MG/10 ML UDCUP PO SCH ×4 (09:05→20:26)
[2018-02-12] MEDS: RIFAXIMIN 550 MG TABLET PO SCH ×2 (09:06→20:26)
[2018-02-12] MEDS: PANTOPRAZOLE 40 MG TABLET PO SCH ×2 (09:06→17:00)
[2018-02-12] MEDS: OMEGA 3 ACID ETHYL ESTERS 1 GM CAPSULE PO SCH (09:06)
[2018-02-12] MEDS: MIDODRINE 5 MG TABLET PO SCH ×3 (09:07→20:26)
[2018-02-12] MEDS: MOISTURIZING CREAM (EUCERIN) 113 GM JAR TOP SCH ×2 (09:07→20:26)
[2018-02-12] MEDS: INSULIN GLARGINE 100 UNIT/ML SUBCUT SCH (09:08)
[2018-02-12] MEDS: ACETAMINOPHEN 500 MG TABLET PO PRN (09:09)
[2018-02-12] MEDS: INSULIN LISPRO 100 UNIT/ML SUBCUT SCH ×4 (09:13→20:26)
[2018-02-12] MEDS: AMPICILLIN 500 MG CAPSULE PO SCH ×4 (09:15→21:33)
[2018-02-12] MEDS: SODIUM CHLORIDE 0.9% 1,000 ML IV SCH ×2 (09:15→16:03)
[2018-02-12] MEDS: GABAPENTIN 300 MG CAPSULE PO SCH (20:26)
[2018-02-12] MEDS: HYDROmorphone 2 MG/1 ML VIAL IV PRN (21:33)
[2018-02-13] MEDS: INSULIN GLARGINE 100 UNIT/ML SUBCUT SCH (09:25)
[2018-02-13] MEDS: OMEGA 3 ACID ETHYL ESTERS 1 GM CAPSULE PO SCH (09:26)
[2018-02-13] MEDS: PANTOPRAZOLE 40 MG TABLET PO SCH ×2 (09:26→16:48)
[2018-02-13] MEDS: LACTULOSE 20 GM/30 ML UDCUP PO SCH ×2 (09:27→20:42)
[2018-02-13] MEDS: RIFAXIMIN 550 MG TABLET PO SCH ×2 (09:27→20:44)
[2018-02-13] MEDS: AMPICILLIN 500 MG CAPSULE PO SCH ×4 (09:27→20:41)
[2018-02-13] MEDS: METOCLOPRAMIDE 10 MG/10 ML UDCUP PO SCH ×4 (09:27→20:47)
[2018-02-13] MEDS: INSULIN LISPRO 100 UNIT/ML SUBCUT SCH ×4 (09:28→20:40)
[2018-02-13] MEDS: MIDODRINE 5 MG TABLET PO SCH ×3 (09:31→20:42)
[2018-02-13] MEDS: MOISTURIZING CREAM (EUCERIN) 113 GM JAR TOP SCH ×2 (13:27→20:49)
[2018-02-13] MEDS: HYDROmorphone 2 MG/1 ML VIAL IV PRN (16:46)
[2018-02-13] MEDS: GABAPENTIN 300 MG CAPSULE PO SCH (20:44)
[2018-02-14] MEDS: MIDODRINE 5 MG TABLET PO SCH ×3 (08:11→20:59)
[2018-02-14] MEDS: INSULIN GLARGINE 100 UNIT/ML SUBCUT SCH (08:12)
[2018-02-14] MEDS: AMPICILLIN 500 MG CAPSULE PO SCH ×4 (08:13→21:00)
[2018-02-14] MEDS: METOCLOPRAMIDE 10 MG/10 ML UDCUP PO SCH ×4 (08:13→20:59)
[2018-02-14] MEDS: RIFAXIMIN 550 MG TABLET PO SCH ×2 (08:14→21:00)
[2018-02-14] MEDS: PANTOPRAZOLE 40 MG TABLET PO SCH ×2 (08:14→16:10)
[2018-02-14] MEDS: OMEGA 3 ACID ETHYL ESTERS 1 GM CAPSULE PO SCH (08:14)
[2018-02-14] MEDS: INSULIN LISPRO 100 UNIT/ML SUBCUT SCH ×4 (08:14→21:02)
[2018-02-14] MEDS: LACTULOSE 20 GM/30 ML UDCUP PO SCH ×2 (08:14→21:02)
[2018-02-14] MEDS: MOISTURIZING CREAM (EUCERIN) 113 GM JAR TOP SCH ×2 (11:53→21:19)
[2018-02-14] MEDS: HYDROmorphone 2 MG/1 ML VIAL IV PRN (18:36)
[2018-02-14] MEDS: GABAPENTIN 300 MG CAPSULE PO SCH (21:00)
[2018-02-15 06:06] LABS: Basophils % 0.6 % (0.0-0.8); Eosinophils # 0.2 10*3/uL (0.0-0.87); Eosinophils % 4.9 % (0.00-10.9); Hematocrit 32.8 VOL% (35.7-47.0); Hemoglobin 10.9 GM/DL (12.0-16.0); Immature Granulocytes % 0.2 %; Immature Granulocytes Absolute 0.01 #; Lymphocytes # 1.5 10*3/uL (1.4-4.0); Lymphocytes % 30.2 % (21.3-54.2); Mean Corpuscular HGB Conc 33.2 GM/DL (32-36); Mean Corpuscular Hemoglobin 31 PG (27-34); Mean Platelet Volume 10.9 FL (9.6-12.0); Monocytes # 0.6 10*3/uL (0.11-0.8); Neutrophils # 2.6 10*3/uL (1.4-7.4); Neutrophils % 52.1 % (38.7-73.9); Platelet Count 73 T/CUMM (130-400); Red Blood Count 3.49 MC/CUMM (3.8-5.5); Red Cell Distribution Width 16.4 % (9.3-17.3); White Blood Count 4.9 T/CUMM (4-12)
[2018-02-15 06:35] LABS: Calcium 7.9 MG/DL (8.5-10.1); Osmolality,Calculated 275.7 MOS/KG (273-304); Potassium 3.6 MMOL/L (3.5-5.1)
[2018-02-15] MEDS: INSULIN LISPRO 100 UNIT/ML SUBCUT SCH ×4 (07:19→20:57)
[2018-02-15] MEDS: OMEGA 3 ACID ETHYL ESTERS 1 GM CAPSULE PO SCH (08:32)
[2018-02-15] MEDS: MIDODRINE 5 MG TABLET PO SCH ×3 (08:32→20:55)
[2018-02-15] MEDS: METOCLOPRAMIDE 10 MG/10 ML UDCUP PO SCH ×4 (08:32→20:55)
[2018-02-15] MEDS: INSULIN GLARGINE 100 UNIT/ML SUBCUT SCH (08:32)
[2018-02-15] MEDS: AMPICILLIN 500 MG CAPSULE PO SCH ×4 (08:32→20:55)
[2018-02-15] MEDS: LACTULOSE 20 GM/30 ML UDCUP PO SCH ×2 (08:32→20:54)
[2018-02-15] MEDS: PANTOPRAZOLE 40 MG TABLET PO SCH ×2 (08:32→16:41)
[2018-02-15] MEDS: RIFAXIMIN 550 MG TABLET PO SCH ×2 (08:32→20:55)
[2018-02-15] MEDS: MOISTURIZING CREAM (EUCERIN) 113 GM JAR TOP SCH ×2 (08:33→20:59)
[2018-02-15] MEDS: ONDANSETRON 4 MG/2 ML VIAL IV PRN (11:38)
[2018-02-15] MEDS: HYDROmorphone 2 MG/1 ML VIAL IV PRN (16:40)
[2018-02-15] MEDS: GABAPENTIN 300 MG CAPSULE PO SCH (20:55)
[2018-02-16] MEDS ORDERED: MEPERIDINE 50 MG/1 ML VIAL ONE (08:15)
[2018-02-16] MEDS ORDERED: MEPERIDINE 25 MG/1 ML VIAL IV ONE (08:20)
[2018-02-16] MEDS: INSULIN LISPRO 100 UNIT/ML SUBCUT SCH ×4 (08:44→20:45)
[2018-02-16] MEDS: METOCLOPRAMIDE 10 MG/10 ML UDCUP PO SCH ×4 (08:51→20:42)
[2018-02-16] MEDS: AMPICILLIN 500 MG CAPSULE PO SCH ×4 (08:51→20:42)
[2018-02-16] MEDS: MIDODRINE 5 MG TABLET PO SCH ×3 (08:51→20:42)
[2018-02-16] MEDS: OMEGA 3 ACID ETHYL ESTERS 1 GM CAPSULE PO SCH (08:52)
[2018-02-16] MEDS: RIFAXIMIN 550 MG TABLET PO SCH ×2 (08:52→20:42)
[2018-02-16] MEDS: PANTOPRAZOLE 40 MG TABLET PO SCH ×2 (08:52→16:22)
[2018-02-16] MEDS: LACTULOSE 20 GM/30 ML UDCUP PO SCH ×2 (08:52→20:41)
[2018-02-16] MEDS: INSULIN GLARGINE 100 UNIT/ML SUBCUT SCH (08:53)
[2018-02-16] MEDS: MOISTURIZING CREAM (EUCERIN) 113 GM JAR TOP SCH ×2 (08:53→20:46)
[2018-02-16] MEDS ORDERED: LIDOCAINE 2% 5 ML VIAL MISC INJ ONE (09:00)
[2018-02-16] MEDS ORDERED: DOXYCYCLINE HYCLATE 100 MG CAPSULE PO ONE (09:00)
[2018-02-16 11:10] LABS: Basophils % 0.5 % (0.0-0.8); Eosinophils # 0.2 10*3/uL (0.0-0.87); Eosinophils % 3.7 % (0.00-10.9); Hematocrit 33.5 VOL% (35.7-47.0); Immature Granulocytes % 0.5 %; Immature Granulocytes Absolute 0.02 #; Lymphocytes # 0.6 10*3/uL (1.4-4.0); Lymphocytes % 14.6 % (21.3-54.2); Mean Corpuscular HGB Conc 32.8 GM/DL (32-36); Mean Corpuscular Hemoglobin 32 PG (27-34); Mean Corpuscular Volume 96.8 FL (87-102); Mean Platelet Volume 10.6 FL (9.6-12.0); Monocytes # 0.5 10*3/uL (0.11-0.8); Monocytes % 11.2 % (1.7-12.7); Neutrophils # 2.8 10*3/uL (1.4-7.4); Neutrophils % 69.5 % (38.7-73.9); Platelet Count 64 T/CUMM (130-400); Red Blood Count 3.46 MC/CUMM (3.8-5.5); Red Cell Distribution Width 16.6 % (9.3-17.3)
[2018-02-16 11:28] LABS: Hypochromasia 1+
[2018-02-16 11:29] LABS: Macrocytosis Slight; Platelet Estimate Decreased
[2018-02-16 11:49] LABS: Albumin 1.4 G/DL (3.4-5.0); Bilirubin,Total 3.5 MG/DL (0.2-1.0); Calcium 7.5 MG/DL (8.5-10.1); Osmolality,Calculated 273.4 MOS/KG (273-304); Total Protein 6.5 G/DL (6.4-8.3)
[2018-02-16] MEDS: ACETAMINOPHEN 500 MG TABLET PO PRN (12:06)
[2018-02-16] MEDS: HYDROmorphone 2 MG/1 ML VIAL IV PRN (20:38)
[2018-02-16] MEDS: GABAPENTIN 300 MG CAPSULE PO SCH (20:42)
[2018-02-17] MEDS: OMEGA 3 ACID ETHYL ESTERS 1 GM CAPSULE PO SCH (09:07)
[2018-02-17] MEDS: ACETAMINOPHEN 500 MG TABLET PO PRN ×2 (09:07→17:32)
[2018-02-17] MEDS: AMPICILLIN 500 MG CAPSULE PO SCH ×4 (09:07→21:28)
[2018-02-17] MEDS: RIFAXIMIN 550 MG TABLET PO SCH ×2 (09:07→21:28)
[2018-02-17] MEDS: LACTULOSE 20 GM/30 ML UDCUP PO SCH ×2 (09:08→21:27)
[2018-02-17] MEDS: INSULIN GLARGINE 100 UNIT/ML SUBCUT SCH (09:08)
[2018-02-17] MEDS: PANTOPRAZOLE 40 MG TABLET PO SCH ×2 (09:08→21:28)
[2018-02-17] MEDS: METOCLOPRAMIDE 10 MG/10 ML UDCUP PO SCH ×4 (09:08→21:29)
[2018-02-17] MEDS: MIDODRINE 5 MG TABLET PO SCH ×3 (09:08→21:28)
[2018-02-17] MEDS: INSULIN LISPRO 100 UNIT/ML SUBCUT SCH ×4 (09:09→21:29)
[2018-02-17] MEDS: MOISTURIZING CREAM (EUCERIN) 113 GM JAR TOP SCH ×2 (09:09→21:30)
[2018-02-17] MEDS: HYDROmorphone 2 MG/1 ML VIAL IV PRN ×2 (09:28→21:24)
[2018-02-17] MEDS: GABAPENTIN 300 MG CAPSULE PO SCH (21:28)
[2018-02-18 03:58] LABS: Basophils % 0.3 % (0.0-0.8); Eosinophils # 0.2 10*3/uL (0.0-0.87); Eosinophils % 2.2 % (0.00-10.9); Hematocrit 33.1 VOL% (35.7-47.0); Hemoglobin 10.9 GM/DL (12.0-16.0); Immature Granulocytes % 0.7 %; Immature Granulocytes Absolute 0.05 #; Lymphocytes # 1.2 10*3/uL (1.4-4.0); Lymphocytes % 16.9 % (21.3-54.2); Mean Corpuscular HGB Conc 32.9 GM/DL (32-36); Mean Corpuscular Hemoglobin 32 PG (27-34); Mean Corpuscular Volume 95.7 FL (87-102); Mean Platelet Volume 10.5 FL (9.6-12.0); Monocytes % 14.4 % (1.7-12.7); Neutrophils # 4.7 10*3/uL (1.4-7.4); Neutrophils % 65.5 % (38.7-73.9); Platelet Count 73 T/CUMM (130-400); Red Blood Count 3.46 MC/CUMM (3.8-5.5); Red Cell Distribution Width 16.8 % (9.3-17.3); White Blood Count 7.2 T/CUMM (4-12)
[2018-02-18 04:13] LABS: Calcium 8.2 MG/DL (8.5-10.1); Osmolality,Calculated 272.7 MOS/KG (273-304); Potassium 4.4 MMOL/L (3.5-5.1)
[2018-02-18 04:57] LABS: Eosinophils 1 % (0-10); Metamyelocytes 1 %
[2018-02-18 04:58] LABS: Band Neutrophils 6 % (0-10); Lymphocytes 13 % (20-55); Segmented Neutrophils 67 % (50-85); Total Cells Counted 100
[2018-02-18 04:59] LABS: Anisocytosis 1+; Platelet Estimate Decreased
[2018-02-18] MEDS: PANTOPRAZOLE 40 MG TABLET PO SCH ×2 (10:06→20:26)
[2018-02-18] MEDS: MIDODRINE 5 MG TABLET PO SCH ×3 (10:06→20:25)
[2018-02-18] MEDS: INSULIN LISPRO 100 UNIT/ML SUBCUT SCH ×4 (10:06→22:27)
[2018-02-18] MEDS: LACTULOSE 20 GM/30 ML UDCUP PO SCH ×2 (10:07→20:26)
[2018-02-18] MEDS: INSULIN GLARGINE 100 UNIT/ML SUBCUT SCH (10:07)
[2018-02-18] MEDS: AMPICILLIN 500 MG CAPSULE PO SCH ×4 (10:07→20:25)
[2018-02-18] MEDS: RIFAXIMIN 550 MG TABLET PO SCH ×2 (10:07→20:26)
[2018-02-18] MEDS: OMEGA 3 ACID ETHYL ESTERS 1 GM CAPSULE PO SCH (10:07)
[2018-02-18] MEDS: METOCLOPRAMIDE 10 MG/10 ML UDCUP PO SCH ×4 (10:07→20:26)
[2018-02-18] MEDS: MOISTURIZING CREAM (EUCERIN) 113 GM JAR TOP SCH ×2 (10:08→20:26)
[2018-02-18] MEDS: HYDROmorphone 2 MG/1 ML VIAL IV PRN ×2 (11:54→22:39)
[2018-02-18] MEDS: GABAPENTIN 300 MG CAPSULE PO SCH (20:26)
[2018-02-19] MEDS: INSULIN LISPRO 100 UNIT/ML SUBCUT SCH ×2 (07:56→12:14)
[2018-02-19] MEDS: LACTULOSE 20 GM/30 ML UDCUP PO SCH (08:58)
[2018-02-19] MEDS: OMEGA 3 ACID ETHYL ESTERS 1 GM CAPSULE PO SCH (08:58)
[2018-02-19] MEDS: RIFAXIMIN 550 MG TABLET PO SCH (08:58)
[2018-02-19] MEDS: AMPICILLIN 500 MG CAPSULE PO SCH ×2 (08:58→12:32)
[2018-02-19] MEDS: PANTOPRAZOLE 40 MG TABLET PO SCH (08:58)
[2018-02-19] MEDS: INSULIN GLARGINE 100 UNIT/ML SUBCUT SCH (08:58)
[2018-02-19] MEDS: METOCLOPRAMIDE 10 MG/10 ML UDCUP PO SCH ×2 (08:58→12:31)
[2018-02-19] MEDS: MIDODRINE 5 MG TABLET PO SCH (08:58)
[2018-02-19] MEDS: MOISTURIZING CREAM (EUCERIN) 113 GM JAR TOP SCH (09:03)
[2018-02-19] MEDS ORDERED: NYSTATIN CREAM 15 GM TUBE TOP SCH (12:00)
[2018-02-19 16:03] VITALS: BP 110/62
== END 2018-02-19 18:31 | disposition home or self-care (01) | DRG 187 ==
LOC: N.TELES 02-08 00:31 → SUATTDRO 02-08 00:31
PROVIDERS: ADMIT Internal Medicine; ATTEND Internal Medicine

== ENCOUNTER 2018-02-24 17:43 | Inpatient (IN) ==
[2018-02-24] MEDS ORDERED: ALBUTEROL 2.5 MG/3 ML NEB RESP TX PRN (20:59)
[2018-02-24] MEDS ORDERED: DEXTROSE 50% 25 GM/50 ML VIAL IV PRN (20:59)
[2018-02-24] MEDS ORDERED: INSULIN REGULAR DRIP 100 ML IV PRN (20:59)
[2018-02-24] MEDS ORDERED: GLUCAGON 1 MG VIAL IM PRN (20:59)
[2018-02-24] MEDS ORDERED: ONDANSETRON 4 MG/2 ML VIAL IV PRN (20:59)
[2018-02-24 21:48] LABS: Basophils % 0.2 % (0.0-0.8); Eosinophils # 0.1 10*3/uL (0.0-0.87); Eosinophils % 1.9 % (0.00-10.9); Hematocrit 30.1 VOL% (35.7-47.0); Hemoglobin 10.5 GM/DL (12.0-16.0); Immature Granulocytes % 0.5 %; Immature Granulocytes Absolute 0.02 #; Lymphocytes # 0.4 10*3/uL (1.4-4.0); Lymphocytes % 9.3 % (21.3-54.2); Mean Corpuscular HGB Conc 34.9 GM/DL (32-36); Mean Corpuscular Hemoglobin 32 PG (27-34); Mean Platelet Volume 9.4 FL (9.6-12.0); Monocytes # 0.4 10*3/uL (0.11-0.8); Monocytes % 8.6 % (1.7-12.7); Neutrophils # 3.3 10*3/uL (1.4-7.4); Neutrophils % 79.5 % (38.7-73.9); Red Blood Count 3.27 MC/CUMM (3.8-5.5); Red Cell Distribution Width 17.4 % (9.3-17.3); White Blood Count 4.2 T/CUMM (4-12)
[2018-02-24] MEDS: SODIUM CHLORIDE 0.9% 1,000 ML IV SCH (21:48)
[2018-02-24 21:52] LABS: Platelet Count 64 T/CUMM (130-400)
[2018-02-24 22:23] LABS: Albumin 1.5 G/DL (3.4-5.0); Bilirubin,Total 1.9 MG/DL (0.2-1.0); Calcium 7.6 MG/DL (8.5-10.1); Osmolality,Calculated 284.8 MOS/KG (273-304); Potassium 2.8 MMOL/L (3.5-5.1); Total Protein 7.6 G/DL (6.4-8.3)
[2018-02-24] MEDS: POTASSIUM CHLORIDE RIDER 10 MEQ in PREMIX 1 EACH IV PRN ×2 (22:42→23:46)
[2018-02-25] MEDS: POTASSIUM CHLORIDE RIDER 10 MEQ in PREMIX 1 EACH IV PRN ×6 (00:50→11:18)
[2018-02-25 07:32] LABS: Basophils % 0.2 % (0.0-0.8); Eosinophils # 0.1 10*3/uL (0.0-0.87); Eosinophils % 2.3 % (0.00-10.9); Hematocrit 27.3 VOL% (35.7-47.0); Hemoglobin 9.7 GM/DL (12.0-16.0); Immature Granulocytes % 0.4 %; Immature Granulocytes Absolute 0.02 #; Lymphocytes # 0.5 10*3/uL (1.4-4.0); Lymphocytes % 10.3 % (21.3-54.2); Mean Corpuscular HGB Conc 35.5 GM/DL (32-36); Mean Corpuscular Hemoglobin 32 PG (27-34); Mean Corpuscular Volume 89.5 FL (87-102); Mean Platelet Volume 11.1 FL (9.6-12.0); Monocytes # 0.6 10*3/uL (0.11-0.8); Monocytes % 12.6 % (1.7-12.7); Neutrophils # 3.6 10*3/uL (1.4-7.4); Neutrophils % 74.2 % (38.7-73.9); Platelet Count 68 T/CUMM (130-400); Red Blood Count 3.05 MC/CUMM (3.8-5.5); Red Cell Distribution Width 17.7 % (9.3-17.3); White Blood Count 4.8 T/CUMM (4-12)
[2018-02-25 08:00] LABS: Albumin 1.4 G/DL (3.4-5.0); Bilirubin,Total 2.2 MG/DL (0.2-1.0); Calcium 7.8 MG/DL (8.5-10.1); Osmolality,Calculated 270.1 MOS/KG (273-304); Potassium 3.5 MMOL/L (3.5-5.1); Total Protein 7.1 G/DL (6.4-8.3)
[2018-02-25 08:03] LABS: Platelet Estimate Decreased
[2018-02-25] MEDS: PANTOPRAZOLE 40 MG TABLET PO SCH (09:01)
[2018-02-25] MEDS: INSULIN GLARGINE 100 UNIT/ML SUBCUT SCH (11:10)
[2018-02-25] MEDS: POTASSIUM CHLORIDE 20 MEQ TABLET PO SCH ×3 (11:11→17:18)
[2018-02-25] MEDS: traMADol 50 MG TABLET PO PRN ×2 (11:12→17:17)
[2018-02-25] MEDS: INSULIN LISPRO 100 UNIT/ML SUBCUT SCH ×3 (11:53→20:15)
[2018-02-25] MEDS: SODIUM CHLORIDE 0.9% 1,000 ML IV SCH (17:11)
[2018-02-26] MEDS: MORPHINE 4 MG/1 ML VIAL IV PRN ×2 (04:27→20:47)
[2018-02-26 04:39] LABS: Basophils % 0.3 % (0.0-0.8); Eosinophils # 0.1 10*3/uL (0.0-0.87); Eosinophils % 3.4 % (0.00-10.9); Hematocrit 26.9 VOL% (35.7-47.0); Hemoglobin 9.2 GM/DL (12.0-16.0); Immature Granulocytes % 0.3 %; Immature Granulocytes Absolute 0.01 #; Lymphocytes # 0.6 10*3/uL (1.4-4.0); Lymphocytes % 18.1 % (21.3-54.2); Mean Corpuscular HGB Conc 34.2 GM/DL (32-36); Mean Corpuscular Hemoglobin 32 PG (27-34); Mean Corpuscular Volume 93.1 FL (87-102); Mean Platelet Volume 11.3 FL (9.6-12.0); Monocytes # 0.4 10*3/uL (0.11-0.8); Monocytes % 9.9 % (1.7-12.7); Neutrophils # 2.4 10*3/uL (1.4-7.4); Red Blood Count 2.89 MC/CUMM (3.8-5.5); Red Cell Distribution Width 18.2 % (9.3-17.3); White Blood Count 3.5 T/CUMM (4-12)
[2018-02-26 04:40] LABS: Platelet Count 60 T/CUMM (130-400)
[2018-02-26] MEDS: SODIUM CHLORIDE 0.9% 1,000 ML IV SCH (05:00)
[2018-02-26 05:05] LABS: Calcium 7.2 MG/DL (8.5-10.1); Osmolality,Calculated 277.1 MOS/KG (273-304); Potassium 4.8 MMOL/L (3.5-5.1)
[2018-02-26 05:28] LABS: Platelet Estimate Decreased
[2018-02-26] MEDS: INSULIN LISPRO 100 UNIT/ML SUBCUT SCH ×4 (07:50→20:50)
[2018-02-26] MEDS: INSULIN GLARGINE 100 UNIT/ML SUBCUT SCH (07:50)
[2018-02-26] MEDS: traMADol 50 MG TABLET PO PRN ×2 (07:54→16:10)
[2018-02-26] MEDS: PANTOPRAZOLE 40 MG TABLET PO SCH (09:10)
[2018-02-26] MEDS ORDERED: CLOTRIMAZOLE 1% CREAM 15 GM TUBE TOP SCH (09:30)
[2018-02-26] MEDS ORDERED: INSULIN GLARGINE 100 UNIT/ML SUBCUT SCH (11:21)
[2018-02-26] MEDS: DESITIN 4OZ/NYSTATIN 15 GRAM MIXTURE PASTE TOP SCH ×2 (16:12→20:51)
[2018-02-27] MEDS: SODIUM CHLORIDE 0.9% 1,000 ML IV SCH (02:53)
[2018-02-27] MEDS: MORPHINE 4 MG/1 ML VIAL IV PRN (02:58)
[2018-02-27 07:55] LABS: Calcium 7.7 MG/DL (8.5-10.1); Osmolality,Calculated 267.5 MOS/KG (273-304); Potassium 4.6 MMOL/L (3.5-5.1)
[2018-02-27] MEDS: INSULIN LISPRO 100 UNIT/ML SUBCUT SCH ×2 (08:56→12:49)
[2018-02-27] MEDS: PANTOPRAZOLE 40 MG TABLET PO SCH (09:03)
[2018-02-27] MEDS ORDERED: MAGNESIUM SULF RIDER 4 GM in PREMIX 1 EACH IV ONE (09:30)
[2018-02-27] MEDS ORDERED: INSULIN GLARGINE 100 UNIT/ML SUBCUT SCH (09:30)
[2018-02-27] MEDS: DESITIN 4OZ/NYSTATIN 15 GRAM MIXTURE PASTE TOP SCH (10:53)
[2018-02-27 15:30] VITALS: BP 143/80
== END 2018-02-27 16:18 | disposition home or self-care (01) | DRG 638 ==
LOC: SUATTDRO 19:40 → N.ICU 19:40 → N.2E 02-26 17:26
PROVIDERS: ADMIT Internal Medicine; ATTEND Internal Medicine

== ENCOUNTER 2018-03-09 19:00 | Inpatient (IN) ==
[2018-03-09] MEDS ORDERED: GLUCAGON 1 MG VIAL IM PRN (23:36)
[2018-03-09] MEDS ORDERED: ONDANSETRON 4 MG/2 ML VIAL IV PRN (23:36)
[2018-03-09] MEDS ORDERED: DEXTROSE 50% 25 GM/50 ML VIAL IV PRN (23:36)
[2018-03-09] MEDS ORDERED: ACETAMINOPHEN 325 MG TABLET PO PRN (23:36)
[2018-03-09] MEDS ORDERED: GABAPENTIN 300 MG CAPSULE PO SCH (23:45)
[2018-03-09] MEDS ORDERED: METHOCARBAMOL 750 MG TABLET PO PRN (23:45)
[2018-03-09] MEDS ORDERED: traMADol 50 MG TABLET PO PRN (23:47)
[2018-03-09] MEDS ORDERED: ZINC OXIDE 16% PASTE 57 GM TUBE TOP PRN (23:51)
[2018-03-09] MEDS ORDERED: CARBOXYMETHYLCELLULOSE 1% OPH SOLN BOTH EYES PRN (23:51)
[2018-03-10] MEDS: LACTULOSE 20 GM/30 ML UDCUP PO SCH ×4 (00:05→21:04)
[2018-03-10] MEDS: GABAPENTIN 300 MG CAPSULE PO SCH ×2 (00:05→21:05)
[2018-03-10 00:06] LABS: Basophils % 0.2 % (0.0-0.8); Eosinophils # 0.1 10*3/uL (0.0-0.87); Eosinophils % 1.6 % (0.00-10.9); Hematocrit 26.8 VOL% (35.7-47.0); Hemoglobin 9.1 GM/DL (12.0-16.0); Immature Granulocytes % 0.5 %; Immature Granulocytes Absolute 0.02 #; Lymphocytes # 0.5 10*3/uL (1.4-4.0); Lymphocytes % 11.1 % (21.3-54.2); Mean Corpuscular Hemoglobin 31 PG (27-34); Mean Corpuscular Volume 92.1 FL (87-102); Mean Platelet Volume 10.6 FL (9.6-12.0); Monocytes # 0.8 10*3/uL (0.11-0.8); Monocytes % 17.7 % (1.7-12.7); Neutrophils % 68.9 % (38.7-73.9); Red Blood Count 2.91 MC/CUMM (3.8-5.5); Red Cell Distribution Width 18.8 % (9.3-17.3); White Blood Count 4.4 T/CUMM (4-12)
[2018-03-10] MEDS: ATORVASTATIN 40 MG TABLET PO SCH ×2 (00:07→21:05)
[2018-03-10] MEDS: DOCUSATE SODIUM 100 MG CAPSULE PO PRN (00:07)
[2018-03-10] MEDS: HydrOXYzine PAMOATE 25 MG CAPSULE PO PRN (00:07)
[2018-03-10 00:10] LABS: Platelet Count 97 T/CUMM (130-400)
[2018-03-10 00:27] LABS: Albumin 1.4 G/DL (3.4-5.0); Bilirubin,Total 2.6 MG/DL (0.2-1.0); Calcium 7.8 MG/DL (8.5-10.1); Osmolality,Calculated 270.2 MOS/KG (273-304); Potassium 4.6 MMOL/L (3.5-5.1); Total Protein 7.4 G/DL (6.4-8.3)
[2018-03-10] MEDS: ERTAPENEM 1,000 MG in SODIUM CHLORIDE 0.9% 100 ML IV SCH (00:50)
[2018-03-10] MEDS: SODIUM CHLORIDE 0.9% 1,000 ML IV SCH ×2 (00:50→21:03)
[2018-03-10] MEDS: MOISTURIZING CREAM (EUCERIN) 113 GM JAR TOP SCH ×3 (00:51→21:07)
[2018-03-10] MEDS: RIFAXIMIN 550 MG TABLET PO SCH ×3 (01:00→21:04)
[2018-03-10 02:29] LABS: Acanthocytes 1+; Anisocytosis 2+; Band Neutrophils 2 % (0-10); Lymphocytes 12 % (20-55); Macrocytosis 2+; Ovalocytes 1+; Platelet Estimate Decreased; Polychromasia Few; Segmented Neutrophils 66 % (50-85); Total Cells Counted 100
[2018-03-10 03:39] LABS: Basophils % 0.4 % (0.0-0.8); Eosinophils # 0.1 10*3/uL (0.0-0.87); Eosinophils % 1.3 % (0.00-10.9); Hematocrit 25.3 VOL% (35.7-47.0); Hemoglobin 8.5 GM/DL (12.0-16.0); Immature Granulocytes % 0.7 %; Immature Granulocytes Absolute 0.03 #; Lymphocytes # 0.6 10*3/uL (1.4-4.0); Lymphocytes % 12.7 % (21.3-54.2); Mean Corpuscular HGB Conc 33.6 GM/DL (32-36); Mean Corpuscular Hemoglobin 31 PG (27-34); Mean Corpuscular Volume 91.7 FL (87-102); Monocytes # 0.8 10*3/uL (0.11-0.8); Neutrophils % 66.9 % (38.7-73.9); Platelet Count 94 T/CUMM (130-400); Red Blood Count 2.76 MC/CUMM (3.8-5.5); Red Cell Distribution Width 18.7 % (9.3-17.3); White Blood Count 4.6 T/CUMM (4-12)
[2018-03-10] MEDS ORDERED: METHOCARBAMOL INJ 1,000 MG in SODIUM CHLORIDE 0.9% 100 ML IV ONE (04:00)
[2018-03-10 04:06] LABS: Albumin 1.4 G/DL (3.4-5.0); Bilirubin,Total 2.7 MG/DL (0.2-1.0); Calcium 7.6 MG/DL (8.5-10.1); Osmolality,Calculated 271.1 MOS/KG (273-304); Potassium 4.4 MMOL/L (3.5-5.1); Total Protein 7.1 G/DL (6.4-8.3)
[2018-03-10] MEDS: traMADol 50 MG TABLET PO PRN ×2 (04:24→21:05)
[2018-03-10 04:56] LABS: Eosinophils 2 % (0-10); Hypochromasia 1+; Lymphocytes 7 % (20-55); Platelet Estimate Decreased; Segmented Neutrophils 76 % (50-85); Total Cells Counted 100
[2018-03-10 04:57] LABS: Macrocytosis Slight
[2018-03-10] MEDS: INSULIN LISPRO 100 UNIT/ML SUBCUT SCH ×4 (09:14→21:07)
[2018-03-10] MEDS: INSULIN GLARGINE 100 UNIT/ML SUBCUT SCH (09:14)
[2018-03-10] MEDS: METOCLOPRAMIDE 10 MG/10 ML UDCUP PO SCH ×4 (09:14→21:05)
[2018-03-10] MEDS: NYSTATIN 500,000 UNIT/5 ML UDCUP SWISH/SWAL SCH ×4 (09:14→21:05)
[2018-03-10] MEDS: MIDODRINE 5 MG TABLET PO SCH ×3 (09:14→21:04)
[2018-03-10] MEDS: OMEGA 3 ACID ETHYL ESTERS 1 GM CAPSULE PO SCH (09:15)
[2018-03-10] MEDS: predniSONE 20 MG TABLET PO SCH ×2 (14:25→21:10)
[2018-03-10] MEDS: METHOCARBAMOL INJ 500 MG in SODIUM CHLORIDE 0.9% 100 ML IV SCH ×2 (14:25→21:03)
[2018-03-10 16:27] LABS: Apearance,Urine CLEAR (Clear); Bilirubin,Urine Negative (Negative); Blood, Urine Moderate mg/dL (Negative); Glucose,Urine (UA) 50 mg/dL (Negative); Ketones,Urine Negative (Negative); Mucus,Urine Occasional /LPF (Occasional); Nitrite,Urine Negative (Negative); Protein,Urine Negative; RBC,Urine 3 /HPF (0-4); Squamous Epithelial Cell,Urine Occasional /HPF (0-10); Urine Color Yellow (Yellow); Urine Specific Gravity 1.012 (1.001-1.035); Urine Urobilinogen < 2.0 EU/DL (0.2-1.0); WBC,Urine 2 /HPF (0-6)
[2018-03-10] MEDS: PANTOPRAZOLE 40 MG TABLET PO SCH (17:25)
[2018-03-11] MEDS: ERTAPENEM 1,000 MG in SODIUM CHLORIDE 0.9% 100 ML IV SCH (00:27)
[2018-03-11] MEDS: METHOCARBAMOL INJ 500 MG in SODIUM CHLORIDE 0.9% 100 ML IV SCH ×3 (03:08→22:18)
[2018-03-11 05:01] LABS: White Blood Count 4.7 T/CUMM (4-12)
[2018-03-11 05:02] LABS: Basophils % 0.2 % (0.0-0.8); Eosinophils % 0.2 % (0.00-10.9); Hematocrit 24.2 VOL% (35.7-47.0); Hemoglobin 8.4 GM/DL (12.0-16.0); Immature Granulocytes % 0.6 %; Immature Granulocytes Absolute 0.03 #; Lymphocytes # 0.6 10*3/uL (1.4-4.0); Lymphocytes % 12.3 % (21.3-54.2); Mean Corpuscular HGB Conc 34.7 GM/DL (32-36); Mean Corpuscular Hemoglobin 32 PG (27-34); Mean Platelet Volume 10.6 FL (9.6-12.0); Monocytes # 0.3 10*3/uL (0.11-0.8); Monocytes % 6.5 % (1.7-12.7); Neutrophils # 3.7 10*3/uL (1.4-7.4); Neutrophils % 80.2 % (38.7-73.9); Red Blood Count 2.63 MC/CUMM (3.8-5.5); Red Cell Distribution Width 19.3 % (9.3-17.3)
[2018-03-11 05:06] LABS: Platelet Count 87 T/CUMM (130-400)
[2018-03-11] MEDS: LACTULOSE 20 GM/30 ML UDCUP PO SCH ×3 (05:24→22:10)
[2018-03-11 05:26] LABS: Calcium 7.2 MG/DL (8.5-10.1); Osmolality,Calculated 268.9 MOS/KG (273-304)
[2018-03-11 05:30] LABS: Hypochromasia 1+; Platelet Estimate Decreased
[2018-03-11 05:32] LABS: Macrocytosis Slight
[2018-03-11 05:33] LABS: Polychromasia Few
[2018-03-11] MEDS: INSULIN LISPRO 100 UNIT/ML SUBCUT SCH ×4 (08:00→20:47)
[2018-03-11] MEDS: RIFAXIMIN 550 MG TABLET PO SCH ×2 (10:05→22:11)
[2018-03-11] MEDS: OMEGA 3 ACID ETHYL ESTERS 1 GM CAPSULE PO SCH (10:05)
[2018-03-11] MEDS: MIDODRINE 5 MG TABLET PO SCH ×3 (10:05→22:11)
[2018-03-11] MEDS: predniSONE 20 MG TABLET PO SCH (10:05)
[2018-03-11] MEDS: METOCLOPRAMIDE 10 MG/10 ML UDCUP PO SCH ×4 (10:06→22:10)
[2018-03-11] MEDS: NYSTATIN 500,000 UNIT/5 ML UDCUP SWISH/SWAL SCH ×4 (10:06→22:10)
[2018-03-11] MEDS: INSULIN GLARGINE 100 UNIT/ML SUBCUT SCH (10:09)
[2018-03-11] MEDS ORDERED: INSULIN GLARGINE 100 UNIT/ML SUBCUT SCH (14:43)
[2018-03-11] MEDS: PANTOPRAZOLE 40 MG TABLET PO SCH (17:04)
[2018-03-11] MEDS: MOISTURIZING CREAM (EUCERIN) 113 GM JAR TOP SCH ×2 (19:20→22:10)
[2018-03-11] MEDS: ATORVASTATIN 40 MG TABLET PO SCH (22:11)
[2018-03-11] MEDS: GABAPENTIN 300 MG CAPSULE PO SCH (22:11)
[2018-03-11] MEDS: traMADol 50 MG TABLET PO PRN (22:24)
[2018-03-11] MEDS ORDERED: INSULIN GLARGINE 100 UNIT/ML SUBCUT ONE (22:30)
[2018-03-12] MEDS ORDERED: DEXTROSE 50% 25 GM/50 ML VIAL IV PRN (00:22)
[2018-03-12] MEDS ORDERED: GLUCAGON 1 MG VIAL IM PRN (00:22)
[2018-03-12] MEDS: INSULIN REGULAR 100 UNIT/ML SUBCUT SCH ×5 (00:48→21:16)
[2018-03-12] MEDS: ERTAPENEM 1,000 MG in SODIUM CHLORIDE 0.9% 100 ML IV SCH (00:49)
[2018-03-12] MEDS: SODIUM CHLORIDE 0.9% 1,000 ML IV SCH ×2 (02:10→17:45)
[2018-03-12] MEDS: METHOCARBAMOL INJ 500 MG in SODIUM CHLORIDE 0.9% 100 ML IV SCH ×3 (04:07→21:14)
[2018-03-12 05:29] LABS: Calcium 7.2 MG/DL (8.5-10.1); Osmolality,Calculated 287.4 MOS/KG (273-304); Potassium 4.4 MMOL/L (3.5-5.1)
[2018-03-12] MEDS: LACTULOSE 20 GM/30 ML UDCUP PO SCH ×3 (06:42→21:15)
[2018-03-12] MEDS ORDERED: predniSONE 20 MG TABLET PO SCH (09:00)
[2018-03-12] MEDS: DOCUSATE SODIUM 100 MG CAPSULE PO PRN (09:00)
[2018-03-12] MEDS: RIFAXIMIN 550 MG TABLET PO SCH ×2 (09:00→21:15)
[2018-03-12] MEDS: OMEGA 3 ACID ETHYL ESTERS 1 GM CAPSULE PO SCH (09:00)
[2018-03-12] MEDS: INSULIN GLARGINE 100 UNIT/ML SUBCUT SCH ×2 (09:01→21:16)
[2018-03-12] MEDS: NYSTATIN 500,000 UNIT/5 ML UDCUP SWISH/SWAL SCH ×4 (09:02→21:15)
[2018-03-12] MEDS: METOCLOPRAMIDE 10 MG/10 ML UDCUP PO SCH ×4 (09:04→21:15)
[2018-03-12] MEDS: MIDODRINE 5 MG TABLET PO SCH ×3 (09:10→21:15)
[2018-03-12] MEDS ORDERED: predniSONE 10 MG TABLET PO ONE (10:49)
[2018-03-12] MEDS ORDERED: INSULIN LISPRO 100 UNIT/ML SUBCUT ONE (11:17)
[2018-03-12] MEDS: MOISTURIZING CREAM (EUCERIN) 113 GM JAR TOP SCH ×2 (12:22→21:14)
[2018-03-12] MEDS: PANTOPRAZOLE 40 MG TABLET PO SCH (17:14)
[2018-03-12] MEDS: HydrOXYzine PAMOATE 25 MG CAPSULE PO PRN (21:15)
[2018-03-12] MEDS: GABAPENTIN 300 MG CAPSULE PO SCH (21:15)
[2018-03-12] MEDS: traMADol 50 MG TABLET PO PRN (21:15)
[2018-03-12] MEDS: ATORVASTATIN 40 MG TABLET PO SCH (21:15)
[2018-03-13] MEDS: SODIUM CHLORIDE 0.9% 1,000 ML IV SCH (02:58)
[2018-03-13] MEDS: METHOCARBAMOL INJ 500 MG in SODIUM CHLORIDE 0.9% 100 ML IV SCH ×2 (03:00→11:49)
[2018-03-13] MEDS: traMADol 50 MG TABLET PO PRN (03:00)
[2018-03-13] MEDS ORDERED: INSULIN GLARGINE 100 UNIT/ML SUBCUT SCH (06:55)
[2018-03-13] MEDS: LACTULOSE 20 GM/30 ML UDCUP PO SCH (07:15)
[2018-03-13] MEDS: NYSTATIN 500,000 UNIT/5 ML UDCUP SWISH/SWAL SCH (08:57)
[2018-03-13] MEDS: INSULIN REGULAR 100 UNIT/ML SUBCUT SCH ×2 (08:58→11:48)
[2018-03-13] MEDS: METOCLOPRAMIDE 10 MG/10 ML UDCUP PO SCH ×2 (08:58→11:48)
[2018-03-13] MEDS: INSULIN NPH 100 UNIT/ML SUBCUT SCH ×2 (08:58→11:48)
[2018-03-13] MEDS: MOISTURIZING CREAM (EUCERIN) 113 GM JAR TOP SCH (08:59)
[2018-03-13] MEDS: OMEGA 3 ACID ETHYL ESTERS 1 GM CAPSULE PO SCH (08:59)
[2018-03-13] MEDS: MIDODRINE 5 MG TABLET PO SCH (08:59)
[2018-03-13] MEDS: RIFAXIMIN 550 MG TABLET PO SCH (08:59)
[2018-03-13] MEDS ORDERED: predniSONE 10 MG TABLET PO SCH (09:00)
[2018-03-13 11:34] VITALS: BP 124/71
== END 2018-03-13 11:40 | disposition hospice, home (50) | DRG 279 ==
LOC: N.5E 21:14 → SUATTDRO 21:14
PROVIDERS: ADMIT Internal Medicine; ATTEND Internal Medicine